=== PATIENT | male | born 1965 | race Caucasian/White ===

== ENCOUNTER 2017-09-10 15:53 | Emergency (ER) | payer BC ==
[2017-09-10] MEDS ORDERED: SODIUM CHLORIDE 0.9% 500 ML IV STA (16:54)
[2017-09-10] MEDS ORDERED: SODIUM CHLORIDE 0.9% 1,000 ML IV STA (16:54)
[2017-09-10 17:35] LABS: Basophils % (A) 0 %; Eosinophils # (A) 0.4 k/uL (0-0.7); Eosinophils % (A) 6 %; HCT 43.5 % (39.0-53.0); HGB 14.5 gm/dL (13.0-17.5); Lymphocytes # (A) 1.2 k/uL (1.0-4.8); Lymphocytes % (A) 18 %; MCH 29.7 pg (25.0-35.0); MCHC 33.4 g/dL (31.0-37.0); MCV 88.7 fL (80.0-100.0); Mean Platelet Volume 6.9; Monocytes # (A) 0.5 k/uL (0-1.0); Monocytes % (A) 7 %; Neutrophils # (A) 4.5 k/uL (1.3-7.7); Neutrophils % (A) 68 %; Platelet Count 342 k/uL (150-450); RDW 13.3 % (11.5-15.5); WBC 6.6 k/uL (3.8-10.6)
[2017-09-10 17:46] LABS: ALT 15 U/L (21-72); AST 28 U/L (17-59); Albumin 4.2 g/dL (3.5-5.0); Alkaline Phosphatase 113 U/L (38-126); Anion Gap 12 mmol/L; Blood Urea Nitrogen 13 mg/dL (9-20); Calcium 9.9 mg/dL (8.4-10.2); Carbon Dioxide 24 mmol/L (22-30); Chloride 107 mmol/L (98-107); Glucose 91 mg/dL (74-99); Sodium 143 mmol/L (137-145); Total Bilirubin 0.5 mg/dL (0.2-1.3); Total Protein 7.2 g/dL (6.3-8.2)
[2017-09-10 17:53] LABS: Creatine Kinase 226 U/L (55-170)
[2017-09-10 18:07] LABS: Creatine Kinase MB 2.4 ng/mL (0.0-2.4); Troponin I <0.012 ng/mL (0.000-0.034)
[2017-09-10 18:58] VITALS: RESP 18
--- NOTE | 2017-09-10 19:01 | ED ---
GI Bleed HPI - General Chief complaint: GI Bleed Stated complaint: Rectal bleeding Time Seen by Provider: 09/10/17 16:31 Source: patient Mode of arrival: ambulatory Limitations: no limitations - History of Present Illness Initial comments: 32 years old gentleman he had episode of rectal bleeding yesterday when he was at work it has been much resolved now he had a similar episode 10 years ago he has no abdominal pain there is no rectal pain there is no history of for a recent history of hemorrhoids he does not have any bleeding disorder and he is not on any blood thinners. He assisted me is he has no headaches no neck stiffness no chest pain no abdominal pain no frequency urgency dysuria rectal bleed has reached his old male - Related Data Home Medications Medication Instructions Recorded Confirmed No Known Home Medications [No 05/03/16 09/10/17 Known Home Medications] Allergies Allergy/AdvReac Type Severity Reaction Status Date / Time aspirin AdvReac Nausea & Verified 09/10/17 16:40 Vomiting Review of Systems ROS Statement: Those systems with pertinent positive or pertinent negative responses have been documented in the HPI. ROS Other: All systems not noted in ROS Statement are negative. 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 Skin: Skin is warm and dry and no rashes or lesions are noted. Eye: Pupils are equal, round and reactive to light, extra-ocular movements are intact; there is normal conjunctiva bilaterally. Ears, nose, mouth and throat: There are moist mucous membranes and no oral lesions. Neck: The neck is supple, there is no tenderness or JVD. Cardiovascular: There is a regular rate and rhythm. No murmur, rub or gallop is appreciated. Respiratory: To auscultation bilateral, no wheezing no rhonchi no distress respiratory vann noticed Gastrointestinal: Soft, non-distended, non-tender abdomen without masses or organomegaly noted. There is no rebound or guarding present. Bowel sounds are unremarkable. Rectal exam was negative for any hemorrhoids on any fissure no wilver bleeding noticed good rectal tone Back: There is no tenderness to palpation in the midline. There is no obvious deformity. Musculoskeletal: Normal ROM, no tenderness, There is no pedal edema. There is no calf tenderness or swelling. No cords were appreciated. Neurological: CN II-XII intact, Cranial nerves III through XII are intact. There are no obvious motor or sensory deficits. Coordination appears grossly intact. Speech is normal. Psychiatric: Cooperative, appropriate mood & affect, normal judgment. Limitations: no limitations Course Vital Signs 09/10/17 09/10/17 09/10/17 16:21 17:28 18:56 Temperature 97.6 F Pulse Rate 86 64 75 Respiratory 18 20 18 Rate Blood Pressure 125/87 121/64 140/66 O2 Sat by Pulse 97 98 98 Oximetry Reassessment was noticed mild is a normal hemoglobin is 14.5 troponin is unremarkable compress metabolic panel is within normal range her troponin is within normal range with the patient is currently taking Asacol mildly did advise that he sees Dr. Davidson for his skull. He agreed with the. I spoke with Dr. Davidson gave him patient's name and also advised patient to call Dr. Davidson's office in the morning to arrange a scope. At the same time if his symptoms get worse or rectal bleed get worse is advised come back to ER he agreed with. He is advised to avoid any nonsteroidal anti-inflammatories as well as alcohol the next few days Medical Decision Making - Lab Data Result diagrams: 09/10/17 17:16 09/10/17 17:16 Lab Results 09/10/17 09/10/17 09/10/17 Range/Units 17:16 17:16 17:16 WBC 6.6 (3.8-10.6) k/uL RBC 4.90 (4.30-5.90) m/uL Hgb 14.5 (13.0-17.5) gm/dL Hct 43.5 (39.0-53.0) % MCV 88.7 (80.0-100.0) fL MCH 29.7 (25.0-35.0) pg MCHC 33.4 (31.0-37.0) g/dL RDW 13.3 (11.5-15.5) % Plt Count 342 (150-450) k/uL Neutrophils % 68 % Lymphocytes % 18 % Monocytes % 7 % Eosinophils % 6 % Basophils % 0 % Neutrophils # 4.5 (1.3-7.7) k/uL Lymphocytes # 1.2 (1.0-4.8) k/uL Monocytes # 0.5 (0-1.0) k/uL Eosinophils # 0.4 (0-0.7) k/uL Basophils # 0.0 (0-0.2) k/uL APTT (22.0-30.0) sec Sodium 143 (137-145) mmol/L Potassium 4.0 (3.5-5.1) mmol/L Chloride 107 (98-107) mmol/L Carbon Dioxide 24 (22-30) mmol/L Anion Gap 12 mmol/L BUN 13 (9-20) mg/dL Creatinine 0.50 L (0.66-1.25) mg/dL Est GFR (CKD-EPI)AfAm >90 (>60 ml/min/1.73 sqM) Est GFR (CKD-EPI)NonAf >90 (>60 ml/min/1.73 sqM) Glucose 91 (74-99) mg/dL Plasma Lactic Acid Ismael (0.7-2.0) mmol/L Calcium 9.9 (8.4-10.2) mg/dL Total Bilirubin 0.5 (0.2-1.3) mg/dL AST 28 (17-59) U/L ALT 15 L (21-72) U/L Alkaline Phosphatase 113 (38-126) U/L Total Creatine Kinase 226 H (55-170) U/L CK-MB (CK-2) 2.4 (0.0-2.4) ng/mL CK-MB (CK-2) Rel Index 1.1 Troponin I <0.012 (0.000-0.034) ng/mL Total Protein 7.2 (6.3-8.2) g/dL Albumin 4.2 (3.5-5.0) g/dL Blood Type Blood Type Recheck Antibody Screen Spec Expiration Date 09/10/17 09/10/17 09/10/17 Range/Units 17:16 17:16 17:16 WBC (3.8-10.6) k/uL RBC (4.30-5.90) m/uL Hgb (13.0-17.5) gm/dL Hct (39.0-53.0) % MCV (80.0-100.0) fL MCH (25.0-35.0) pg MCHC (31.0-37.0) g/dL RDW (11.5-15.5) % Plt Count (150-450) k/uL Neutrophils % % Lymphocytes % % Monocytes % % Eosinophils % % Basophils % % Neutrophils # (1.3-7.7) k/uL Lymphocytes # (1.0-4.8) k/uL Monocytes # (0-1.0) k/uL Eosinophils # (0-0.7) k/uL Basophils # (0-0.2) k/uL APTT 24.8 (22.0-30.0) sec Sodium (137-145) mmol/L Potassium (3.5-5.1) mmol/L Chloride (98-107) mmol/L Carbon Dioxide (22-30) mmol/L Anion Gap mmol/L BUN (9-20) mg/dL Creatinine (0.66-1.25) mg/dL Est GFR (CKD-EPI)AfAm (>60 ml/min/1.73 sqM) Est GFR (CKD-EPI)NonAf (>60 ml/min/1.73 sqM) Glucose (74-99) mg/dL Plasma Lactic Acid Ismael 0.7 (0.7-2.0) mmol/L Calcium (8.4-10.2) mg/dL Total Bilirubin (0.2-1.3) mg/dL AST (17-59) U/L ALT (21-72) U/L Alkaline Phosphatase (38-126) U/L Total Creatine Kinase (55-170) U/L CK-MB (CK-2) (0.0-2.4) ng/mL CK-MB (CK-2) Rel Index Troponin I (0.000-0.034) ng/mL Total Protein (6.3-8.2) g/dL Albumin (3.5-5.0) g/dL Blood Type O Positive Blood Type Recheck No Antibody Screen NEGATIVE Spec Expiration Date 09/13/2017 - 2316 Disposition Clinical Impression: Rectal bleed Disposition: HOME SELF-CARE Condition: Good Instructions: Gastrointestinal Bleeding (ED) Is patient prescribed a controlled substance at d/c from ED?: No If prescribed controlled substance>3 days was MAPS reviewed?: No When asked, does pt state using other controlled substances?: No Referrals: Maxine Yun MD [Primary Care Provider] - 1-2 days Abiel Davidson DO [Doctor of Osteopathic Medicine] - 1-2 days
[2017-09-10 19:26] VITALS: BP 130/68; PULSE 84; TEMP 98
== END 2017-09-10 19:26 | disposition home or self-care (01) ==
LOC: EC 15:53
DX: K62.5 Hemorrhage of anus and rectum (principal); F17.200 Nicotine dependence, unspecified, uncomplicated; Z86.73 Personal history of transient ischemic attack (TIA), and cerebral infarction without residual deficits; Z88.6 Allergy status to analgesic agent
CPT/HCPCS: 36415; 80053; 82550; 82553; 83605; 84484; 85025; 85730; 86850; 86900; 86901; 96360; 96361; 99283

== ENCOUNTER → 2020-09-06 | Outpatient (CLI) | payer OTHER ==
--- NOTE | 2020-09-06 15:57 | XR ---
EXAMINATION TYPE: XR ankle complete LT DATE OF EXAM: 09/06/2020 COMPARISON: NONE HISTORY: Pain FINDINGS: Three views of the ankle demonstrate the ankle mortise to be intact and symmetric. The joint spaces are preserved. The osseous structures are intact. Diffuse soft tissue edema. Tiny plantar calcaneal spur. IMPRESSION: 1. No definite acute fracture or dislocation, if symptoms persist follow-up study in 7 to 10 days wou ld be suggested.
== END | disposition home or self-care (01) ==
LOC: RADXRMAIN 15:37
PROVIDERS: ATTEND Emergency Medicine
DX: S93.402A Sprain of unspecified ligament of left ankle, initial encounter (principal)

== ENCOUNTER → 2020-09-07 | Outpatient (CLI) | payer OTHER ==
--- NOTE | 2020-09-07 10:37 | US ---
EXAMINATION TYPE: US venous doppler duplex LE LT DATE OF EXAM: 09/07/2020 10:25 AM COMPARISON: NONE CLINICAL HISTORY: S80.12XD S93.602D. SIDE PERFORMED: Left TECHNIQUE: The lower extremity deep venous system is examined utilizing real time linear array sonog shana with graded compression, doppler sonography and color-flow sonography. VESSELS IMAGED: Common Femoral Vein Deep Femoral Vein Greater Saphenous Vein * Femoral Vein Popliteal Vein Small Saphenous Vein * Proximal Calf Veins (* superficial vessels) Probable Ceron's cyst, C shaped measuring 4.6 x 1.7 x 2.8cm. Left Leg: Negative for DVT IMPRESSION: 1. Left lower extremity ultrasound negative for deep venous thrombosis. 2. Popliteal cyst left posterior popliteal fossa
--- NOTE | 2020-09-07 11:34 | XR ---
EXAMINATION TYPE: XR foot complete LT DATE OF EXAM: 09/07/2020 CLINICAL HISTORY: pain TECHNIQUE: Frontal, lateral and oblique images of the left foot are obtained. COMPARISON: None. FINDINGS: There is no acute fracture/dislocation evident. The joint spaces appear within normal barrientos its. The overlying soft tissue appears unremarkable. Plantar and dorsal calcaneal spurs identified. IMPRESSION: There is no acute fracture or dislocation. ICD 10 NO FRACTURE, INITIAL EVALUATION
--- NOTE | 2020-09-07 11:35 | XR ---
EXAMINATION TYPE: XR tibia fibula LT DATE OF EXAM: 09/07/2020 CLINICAL HISTORY: pain TECHNIQUE: AP and lateral images of the left tibia and fibula are obtained. COMPARISON: None. FINDINGS: There is no acute fracture/dislocation evident. The joint spaces appear within normal barrientos its. The overlying soft tissue appears unremarkable. IMPRESSION: There is no acute fracture or dislocation seen. ICD 10 NO FRACTURE, INITIAL EVALUATION
== END | disposition home or self-care (01) ==
LOC: RADXRMAIN 09:38
PROVIDERS: ATTEND Emergency Medicine
DX: M71.22 Synovial cyst of popliteal space [Baker], left knee (principal); M79.672 Pain in left foot; M79.662 Pain in left lower leg

== ENCOUNTER 2020-09-09 14:45 | Emergency (ER) | payer BC, OTHER ==
[2020-09-09 14:52] VITALS: RESP 18
[2020-09-09 16:06] LABS: Basophils # (A) 0.1 k/uL (0-0.2); Basophils % (A) 1 %; Eosinophils # (A) 0.3 k/uL (0-0.7); Eosinophils % (A) 3 %; HCT 46.1 % (39.0-53.0); HGB 15.5 gm/dL (13.0-17.5); Lymphocytes # (A) 0.8 k/uL (1.0-4.8); Lymphocytes % (A) 11 %; MCH 31.4 pg (25.0-35.0); MCHC 33.6 g/dL (31.0-37.0); MCV 93.6 fL (80.0-100.0); Monocytes # (A) 0.5 k/uL (0-1.0); Monocytes % (A) 7 %; Neutrophils # (A) 5.9 k/uL (1.3-7.7); Neutrophils % (A) 77 %; Platelet Count 369 k/uL (150-450); RBC 4.92 m/uL (4.30-5.90); RDW 13.2 % (11.5-15.5); WBC 7.6 k/uL (3.8-10.6)
[2020-09-09 16:23] LABS: ALT 21 U/L (4-49); AST 29 U/L (17-59); African American GFR (CKD) >90 (>60 ml/min/1.73 sqM); Albumin 3.8 g/dL (3.5-5.0); Alkaline Phosphatase 155 U/L (38-126); Anion Gap 6 mmol/L; Blood Urea Nitrogen 13 mg/dL (9-20); C Reactive Protein 4.9 mg/dL (<1.0); Calcium 9.3 mg/dL (8.4-10.2); Carbon Dioxide 30 mmol/L (22-30); Chloride 100 mmol/L (98-107); Creatine Kinase 58 U/L (55-170); Glucose 106 mg/dL (74-99); Non-African American GFR(CKD) >90 (>60 ml/min/1.73 sqM); Potassium 4.2 mmol/L (3.5-5.1); Sodium 136 mmol/L (137-145); Total Bilirubin 0.8 mg/dL (0.2-1.3); Total Protein 6.9 g/dL (6.3-8.2)
[2020-09-09 16:49] LABS: Erythrocyte Sedimentation Rate 16 mm/hr (0-15)
--- NOTE | 2020-09-09 17:03 | ED ---
Lower Extremity Injury HPI - General Source: patient Mode of arrival: ambulatory Limitations: no limitations <Estefani Carballo - Last Filed: 09/09/20 19:15> <Trav Melendezah Iliana - Last Filed: 09/10/20 23:08> - General Chief Complaint: Extremity Injury, Lower Stated Complaint: [facility] Fall Time Seen by Provider: 09/09/20 15:24 - History of Present Illness Initial Comments: Patient is a 55-year-old male presenting to the emergency department for a recheck of an injury to his left lower leg. Patient states about 2 weeks ago he fell over a piece of equipment at work and twisted his left knee and ankle. 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 He was able to get appointment the following week, he did have outpatient x-rays of his ankle, foot, tib-fib about 3 days ago. No acute fracture dislocation seen. He also had an ultrasound of his left lower extremity 2 days ago which revealed no evidence of blood clots. Patient states he'll follow with [facility] today and they recommended coming into the ER for further evaluation. Patient states he continues to have pain of his left lower leg, swelling as well as redness to the area. He states his left knee no longer hurts, is able to bend without difficulty. He denies any previous left lower extremity surgeries or injuries. He denies any fevers or chills, no nausea or vomiting. He states the pain increases when he is standing upright or when he sitting and the leg is hanging down. He denies history of previous blood clots. Patient has no further complaints at this time. Upon arrival to the ER his vitals are stable. (Estefani Carballo) - Related Data Previous Rx's Medication Instructions Recorded Cephalexin [Keflex] 500 mg PO Q6HR 7 Days #28 cap 09/09/20 HYDROcodone/APAP 5-325MG [Madera 1 tab PO Q6HR PRN 3 Days #12 tab 09/09/20 5-325] Allergies Allergy/AdvReac Type Severity Reaction Status Date / Time aspirin AdvReac Nausea & Verified 09/09/20 16:45 Vomiting Review of Systems ROS Other: All systems not noted in ROS Statement are negative. <Estefani Carballo - Last Filed: 09/09/20 19:15> ROS Other: All systems not noted in ROS Statement are negative. <Gem Melendez - Last Filed: 09/10/20 23:08> ROS Statement: Those systems with pertinent positive or pertinent negative responses have been documented in the HPI. 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 Patient is nontoxic and in no acute distress. HEAD: Atraumatic, normocephalic. EYES: Pupils equal round and reactive to light, extraocular movements intact, sclera anicteric, conjunctiva are normal. Eyelids were unremarkable. ENT: TMs normal, nares patent, oropharynx clear without exudates. Moist mucous membranes. NECK: Normal range of motion, supple without lymphadenopathy or JVD. LUNGS: Unlabored respirations. Breath sounds clear to auscultation bilaterally and equal. No wheezes rales or rhonchi. HEART: Regular rate and rhythm without murmurs, rubs or gallops. ABDOMEN: Soft, nontender, normoactive bowel sounds. No guarding, no rebound. No masses appreciated. : Deferred MUSCULOSKELETAL: The patient has significant swelling of the left lower leg just below the knee level when compared to the right lower leg. He has erythema and bruising from the mid to be a area down through the foot. His dorsal pedis pulse is normal, strong. He is able to flex and extend his ankle, his toes, he does have pain with palpation of the entire area, the area is soft and compressible. There is some warmth to the area. Full active range of motion of his left knee and hip. Rest of extremities with adequate strength and normal range of motion, no pitting or edema. No clubbing or cyanosis. NEUROLOGICAL: Patient is alert and oriented x 3. Motor and sensory are also intact. Cranial nerves II through XII grossly intact. Symmetrical smile. Normal speech. PSYCH: Normal mood, normal affect. SKIN: Warm, Dry, normal turgor, no rashes or lesions noted. (Estefani Carballo) Course Vital Signs 09/09/20 09/09/20 14:50 18:10 Temperature 97.8 F 98.4 F Pulse Rate 96 74 Respiratory 18 18 Rate Blood Pressure 183/99 165/91 O2 Sat by Pulse 98 96 Oximetry Medical Decision Making - Lab Data Result diagrams: 09/09/20 15:55 09/09/20 15:55 <Estefani Carballo - Last Filed: 09/09/20 19:15> - Lab Data Result diagrams: 09/09/20 15:55 09/09/20 15:55 <Gem Melendez - Last Filed: 09/10/20 23:08> - Medical Decision Making Patient is a 55-year-old male here with a recheck of a work injury that he sustained 2 weeks ago. He continues to have pain, swelling of the left lower leg. He has had recent x-rays, ultrasound to rule out DVT 2 days ago which were all negative. I did perform a CT of his left lower leg today which reveals no acute bony abnormalities. Discussed these findings with the patient. Patient be started on antibiotics for mild redness and erythema to prevent infection, I will give him a prescription for Madera for pain relief. He should alternate this with ibuprofen. We will give him orthopedic follow-up for possible ligament damage. He should continue to do elevation, compression with an Chu wrap as well as using his crutches. He is stable for discharge. Return parameters were discussed with the patient he verbalizes understanding. Case discussed with Dr. Melendez. (Estefani Carballo) I was available for consultation in the emergency department. The history and physical exam were done by the midlevel provider. I was consulted for this patients care. I reviewed the case with the midlevel provider and based on their presentation of the patient, I agree with the assessment, medical decision making and plan of care as documented. Chart was dictated using [employer]in[employer] dictation software. Attempts were made to correct any dictation errors however some typographical errors may persist. Patient was seen during a national state of emergency due to the Covid-19 pandemic. (Gem Melendez) - Lab Data Lab Results 09/09/20 09/09/20 Range/Units 15:55 15:55 WBC 7.6 (3.8-10.6) k/uL RBC 4.92 (4.30-5.90) m/uL Hgb 15.5 (13.0-17.5) gm/dL Hct 46.1 (39.0-53.0) % MCV 93.6 (80.0-100.0) fL MCH 31.4 (25.0-35.0) pg MCHC 33.6 (31.0-37.0) g/dL RDW 13.2 (11.5-15.5) % Plt Count 369 (150-450) k/uL MPV 7.0 Neutrophils % 77 % Lymphocytes % 11 % Monocytes % 7 % Eosinophils % 3 % Basophils % 1 % Neutrophils # 5.9 (1.3-7.7) k/uL Lymphocytes # 0.8 L (1.0-4.8) k/uL Monocytes # 0.5 (0-1.0) k/uL Eosinophils # 0.3 (0-0.7) k/uL Basophils # 0.1 (0-0.2) k/uL ESR 16 H (0-15) mm/hr Sodium 136 L (137-145) mmol/L Potassium 4.2 (3.5-5.1) mmol/L Chloride 100 (98-107) mmol/L Carbon Dioxide 30 (22-30) mmol/L Anion Gap 6 mmol/L BUN 13 (9-20) mg/dL Creatinine 0.44 L (0.66-1.25) mg/dL Est GFR (CKD-EPI)AfAm >90 (>60 ml/min/1.73 sqM) Est GFR (CKD-EPI)NonAf >90 (>60 ml/min/1.73 sqM) Glucose 106 H (74-99) mg/dL Calcium 9.3 (8.4-10.2) mg/dL Total Bilirubin 0.8 (0.2-1.3) mg/dL AST 29 (17-59) U/L ALT 21 (4-49) U/L Alkaline Phosphatase 155 H (38-126) U/L Creatine Kinase 58 (55-170) U/L C-Reactive Protein 4.9 H (<1.0) mg/dL Total Protein 6.9 (6.3-8.2) g/dL Albumin 3.8 (3.5-5.0) g/dL Disposition Is patient prescribed a controlled substance at d/c from ED?: Yes When asked, does pt state using other controlled substances?: No If prescribed controlled substance>3 days was MAPS reviewed?: Prescribed <3 Days If opioid is for acute pain is fill amount 7 days or less?: Yes If Rx opioid, was Start Talking consent form obtained?: Yes Time of Disposition: 19:11 <Estefani Carballo - Last Filed: 09/09/20 19:15> <Gem Melendez - Last Filed: 09/10/20 23:08> Clinical Impression: Injury of left ankle, Cellulitis of left lower leg Disposition: HOME SELF-CARE Condition: Stable Instructions (If sedation given, give patient instructions): Ankle Sprain (ED) Additional Instructions: Please return to the Emergency Department if symptoms worsen or any other concerns. Alternate between Tylenol and ibuprofen for discomfort. For more severe pain, he can take Madera with ibuprofen. Continue to elevate above the heart level, use compression wrap for swelling control. Take antibiotics as prescribed. Follow-up with orthopedics for further evaluation of her injury. No driving or working at this time until follow-up with orthopedics. Continue to use crutches. Prescriptions: Cephalexin [Keflex] 500 mg PO Q6HR 7 Days #28 cap HYDROcodone/APAP 5-325MG [[place] 5-325] 1 tab PO Q6HR PRN 3 Days #12 tab PRN Reason: Pain Referrals: Maxine Yun MD [Primary Care Provider] - 1-2 days Danilo Woodall PAC [PHYSICIAN [employer] INSTRUCTOR] - 1-2 days
--- NOTE | 2020-09-09 18:07 | CT ---
EXAMINATION TYPE: CT lower leg LT wo con DATE OF EXAM: 09/09/2020 COMPARISON: Left tibia and fibula 09/07/2020 HISTORY: Injury 1 week ago, continued pain and swelling. CT DLP: 296.9 mGycm Automated exposure control for dose reduction was used. Images were obtained from the distal femur to the bottom of the foot without contrast. The tibia and fibula appear intact. The knee joint is anatomic. Joint spaces are fairly normal. Ankle joint is intact. Joint spaces are fairly normal. I see no focal bone destruction. There is no eviden ce of a soft tissue mass. There are atherosclerotic vascular calcifications in the tibial arteries. T here are plantar and Achilles calcaneal spurs. There is some soft tissue swelling of the forefoot. Th ere is mild spurring on the anterior patella. IMPRESSION: There is soft tissue swelling on the dorsum of the foot. No fracture seen. No evidence of osteomyelit is.
[2020-09-09 18:12] VITALS: BP 165/91; PULSE 74; TEMP 98.4
== END 2020-09-09 19:29 | disposition home or self-care (01) ==
LOC: EC 14:45
DX: S90.32XA Contusion of left foot, initial encounter (principal); S99.912A Unspecified injury of left ankle, initial encounter; L03.116 Cellulitis of left lower limb; F17.200 Nicotine dependence, unspecified, uncomplicated; Z86.73 Personal history of transient ischemic attack (TIA), and cerebral infarction without residual deficits; F12.90 Cannabis use, unspecified, uncomplicated; X50.1XXA Overexertion from prolonged static or awkward postures, initial encounter; Y92.89 Other specified places as the place of occurrence of the external cause; Y99.0 Civilian activity done for income or pay
CPT/HCPCS: 36415; 80053; 82550; 85025; 85652; 86140; 99284

== ENCOUNTER 2020-09-13 11:48 | Inpatient (IN) | payer OTHER ==
--- NOTE | 2020-09-13 12:13 | ED ---
Lower Extremity Injury HPI - General Chief Complaint: Extremity Injury, Lower Stated Complaint: revisit - [facility] lt foot injury Time Seen by Provider: 09/13/20 11:57 Source: patient Mode of arrival: ambulatory Limitations: no limitations - History of Present Illness Initial Comments: 55-year-old male presents to emergency Department with a chief complaint of left lower leg injury. Patient states he injured his left lower extremity on 08/25/20. States he was evaluated in the emergency department several days after but was found to have no acute findings. Patient reports she gradually began to develop swelling and erythema and region. States about one week ago he came to the emergency department for reevaluation a head CT imaging showing no acute f indings aside from soft tissue swelling. States was started on Keflex and has taken 3 days of the medication with no improvement in the swelling or erythema. States the erythematous region is located along the anterior lateral aspect of the left lower extremity and moving circumferentially to the foot. He also reports left-sided calf pain states he saw Dr. Prince today who advised him to come to emergency department for evaluation and had requested specific subtle laboratory work, ultrasound imaging and IV antibiotics. Patient denies any fevers or chills. States the pain is exacerbated with weightbearing. States he spending most of his days in a recliner with the leg elevated due to the pain. Denies chest pain or shortness of breath. - Related Data Previous Rx's Medication Instructions Recorded Cephalexin [Keflex] 500 mg PO Q6HR 7 Days #28 cap 09/09/20 HYDROcodone/APAP 5-325MG [[place] 1 tab PO Q6HR PRN 3 Days #12 tab 09/09/20 5-325] Allergies Allergy/AdvReac Type Severity Reaction Status Date / Time aspirin AdvReac Nausea & Verified 09/13/20 12:30 Vomiting Review of Systems ROS Statement: Those systems with pertinent positive or pertinent negative responses have been documented in the HPI. ROS Other: All systems not noted in ROS Statement are negative. Past Medical History Past Medical History: CVA/TIA Additional Past Medical History / Comment(s): divirticultis History of Any Multi-Drug Resistant Organisms: None Reported Past Surgical History: No Surgical Hx Reported Past Psychological History: No Psychological Hx Reported Smoking Status: Current every day smoker Past Alcohol Use History: Occasional Past Drug Use History: Marijuana General Exam Limitations: no limitations General appearance: alert, in no apparent distress Head exam: Present: atraumatic, normocephalic, normal inspection Eye exam: Present: normal appearance, PERRL, EOMI Pupils: Present: normal accommodation ENT exam: Present: normal exam, normal oropharynx, mucous membranes moist, TM's normal bilaterally, normal external ear exam Neck exam: Present: normal inspection, full ROM. Absent: tenderness, lymphadenopathy Respiratory exam: Present: normal lung sounds bilaterally. Absent: respiratory distress, wheezes, rales, rhonchi, stridor, chest wall tenderness, accessory muscle use Cardiovascular Exam: Present: regular rate, normal rhythm, normal heart sounds. Absent: systolic murmur Extremities exam: Present: tenderness (Tenderness at the foot and ankle), normal capillary refill. Absent: normal inspection (Left lower extremity edema with ov erlying cellulitic skin changes noted on the anterior lateral aspect of the left lower leg in a circumferential he around the ankle and foot.), full ROM (Limited range of motion of the left ankle due to swelling), pedal edema, joint swelling, calf tenderness Back exam: Present: normal inspection, full ROM. Absent: tenderness, CVA tenderness (R), CVA tenderness (L) Neurological exam: Present: alert, oriented X3 Psychiatric exam: Present: normal affect, normal mood Skin exam: Present: warm, dry, intact, normal color Course Vital Signs 09/13/20 09/13/20 11:51 14:12 Temperature 98.2 F 98.1 F Pulse Rate 87 80 Respiratory 18 18 Rate Blood Pressure 144/88 155/102 O2 Sat by Pulse 93 L 95 Oximetry Medical Decision Making - Medical Decision Making 55-year-old male presents to emergency Department with a chief complaint of left lower leg injury. Physical examination, his left lower extremity swelling with calf tenderness. Cellulitis on the anterior lateral aspect of the extremity and the whole foot. Laboratory work obtained shows no leukocytosis. Lactic acid within normal limits. Blood cultures pending. ESR 22 CRP 6.3. Patient was initially given Rocephin. 2 L IV fluids. Will be started on vancomycin. I spoke with VICENTE clemente for Dr. Prince who would like to admit. I spoke with Dr. Mcghee who will admit for further medical management. Infectious disease and consult. Orthopedics on consult. Case discussed with - Lab Data Result diagrams: 09/13/20 13:01 09/13/20 13: Lab Results 09/13/20 09/13/20 09/13/20 Range/Units 13: 13: 13: WBC 9.0 (3.8-10.6) k/uL RBC 5.01 (4.30-5.90) m/uL Hgb 15.3 (13.0-17.5) gm/dL Hct 46.9 (39.0-53.0) % MCV 93.5 (80.0-100.0) fL MCH 30.6 (25.0-35.0) pg MCHC 32.7 (31.0-37.0) g/dL RDW 13.8 (11.5-15.5) % Plt Count 465 H (150-450) k/uL MPV 6.6 Neutrophils % 76 % Lymphocytes % 13 % Monocytes % 6 % Eosinophils % 4 % Basophils % 1 % Neutrophils # 6.8 (1.3-7.7) k/uL Lymphocytes # 1.1 (1.0-4.8) k/uL Monocytes # 0.6 (0-1.0) k/uL Eosinophils # 0.3 (0-0.7) k/uL Basophils # 0.1 (0-0.2) k/uL ESR 22 H (0-15) mm/hr Sodium 138 (137-145) mmol/L Potassium 4.5 (3.5-5.1) mmol/L Chloride 99 (98-107) mmol/L Carbon Dioxide 33 H (22-30) mmol/L Anion Gap 6 mmol/L BUN 11 (9-20) mg/dL Creatinine 0.42 L (0.66-1.25) mg/dL Est GFR (CKD-EPI)AfAm >90 (>60 ml/min/1.73 sqM) Est GFR (CKD-EPI)NonAf >90 (>60 ml/min/1.73 sqM) Glucose 107 H (74-99) mg/dL Plasma Lactic Acid Ismael 0.8 (0.7-2.0) mmol/L Calcium 10.3 H (8.4-10.2) mg/dL Total Bilirubin 0.9 (0.2-1.3) mg/dL AST 38 (17-59) U/L ALT 25 (4-49) U/L Alkaline Phosphatase 166 H (38-126) U/L C-Reactive Protein 6.3 H (<1.0) mg/dL Total Protein 7.5 (6.3-8.2) g/dL Albumin 4.3 (3.5-5.0) g/dL Disposition Clinical Impression: Failure of outpatient treatment, Left leg cellulitis Disposition: ADMITTED IP TO THIS HOSP Condition: Stable Is patient prescribed a controlled substance at d/c from ED?: No Referrals: Maxine Yun MD [Primary Care Provider] - 1-2 days Time of Disposition: 15:14
[2020-09-13] MEDS ORDERED: cefTRIAXone IN SWFI 1,000 MG/10 ML SYRINGE IVP STA (12:22)
[2020-09-13] MEDS ORDERED: SODIUM CHLORIDE 0.9% 1,000 ML IV STA ×2 (12:22)
[2020-09-13] MEDS ORDERED: HYDROcodone/APAP 5-325MG 1 EACH TAB PO STA (13:29)
[2020-09-13 13:33] LABS: Basophils # (A) 0.1 k/uL (0-0.2); Basophils % (A) 1 %; Eosinophils # (A) 0.3 k/uL (0-0.7); Eosinophils % (A) 4 %; HCT 46.9 % (39.0-53.0); HGB 15.3 gm/dL (13.0-17.5); Lymphocytes # (A) 1.1 k/uL (1.0-4.8); Lymphocytes % (A) 13 %; MCH 30.6 pg (25.0-35.0); MCHC 32.7 g/dL (31.0-37.0); MCV 93.5 fL (80.0-100.0); Mean Platelet Volume 6.6; Monocytes # (A) 0.6 k/uL (0-1.0); Monocytes % (A) 6 %; Neutrophils # (A) 6.8 k/uL (1.3-7.7); Neutrophils % (A) 76 %; Platelet Count 465 k/uL (150-450); RBC 5.01 m/uL (4.30-5.90); RDW 13.8 % (11.5-15.5)
[2020-09-13 13:50] LABS: ALT 25 U/L (4-49); AST 38 U/L (17-59); African American GFR (CKD) >90 (>60 ml/min/1.73 sqM); Albumin 4.3 g/dL (3.5-5.0); Alkaline Phosphatase 166 U/L (38-126); Anion Gap 6 mmol/L; Blood Urea Nitrogen 11 mg/dL (9-20); C Reactive Protein 6.3 mg/dL (<1.0); Calcium 10.3 mg/dL (8.4-10.2); Carbon Dioxide 33 mmol/L (22-30); Chloride 99 mmol/L (98-107); Glucose 107 mg/dL (74-99); Non-African American GFR(CKD) >90 (>60 ml/min/1.73 sqM); Potassium 4.5 mmol/L (3.5-5.1); Sodium 138 mmol/L (137-145); Total Bilirubin 0.9 mg/dL (0.2-1.3); Total Protein 7.5 g/dL (6.3-8.2)
--- NOTE | 2020-09-13 13:54 | US ---
EXAMINATION TYPE: US venous doppler duplex LE LT DATE OF EXAM: 09/13/2020 1:46 PM COMPARISON: 09/07/2020 CLINICAL HISTORY: r/o dvt, cellulitis. edema SIDE PERFORMED: Left TECHNIQUE: The lower extremity deep venous system is examined utilizing real time linear array sonog shana with graded compression, doppler sonography and color-flow sonography. VESSELS IMAGED: Common Femoral Vein Deep Femoral Vein Greater Saphenous Vein * Femoral Vein Popliteal Vein Small Saphenous Vein * Proximal Calf Veins (* superficial vessels) Left Leg: Negative for DVT Fluid pocket seen medial 4.4 x 1.7 x 2.2 cm. IMPRESSION: 1. No diagnostic evidence of DVT. 2. Left popliteal fossa cyst measuring 4.4 cm
[2020-09-13 14:17] LABS: Erythrocyte Sedimentation Rate 22 mm/hr (0-15)
[2020-09-13] MEDS ORDERED: VANCOMYCIN IV PER PHARMACY 1 EACH MISC MISCELLANE PRN (15:07)
[2020-09-13] MEDS ORDERED: LORazepam 2 MG/ML INJ IV PRN (15:09)
[2020-09-13] MEDS ORDERED: NALOXONE 0.4 MG/ML 1 ML VIAL IV PRN (15:09)
[2020-09-13] MEDS ORDERED: MORPHINE SULFATE 4 MG/ML SYRINGE IV PRN (15:09)
[2020-09-13] MEDS ORDERED: ONDANSETRON 4 MG/2 ML VIAL IVP PRN (15:09)
[2020-09-13] MEDS ORDERED: ACETAMINOPHEN TAB 325 MG TAB PO PRN (15:09)
[2020-09-13] MEDS ORDERED: VANCOMYCIN 1,500 MG in SODIUM CHLORIDE 0.9% 250 ML IVPB STA (15:13)
[2020-09-13] MEDS ORDERED: ALPRAZolam 0.25 MG TAB PO PRN (18:32)
[2020-09-13] MEDS ORDERED: TEMAZEPAM 15 MG CAP PO PRN (18:32)
--- NOTE | 2020-09-13 19:02 | CT ---
EXAMINATION TYPE: CT lower extremity LT w con DATE OF EXAM: 09/13/2020 COMPARISON: None HISTORY: Extensive cellulitis, LT leg. Pt noted a recent work injury. CT DLP: 153.9 mGycm Automated exposure control for dose reduction was used. CONTRAST: Performed with IV Contrast, patient injected with 100 mL of Isovue 300. Images obtained from the proximal tibia to the bottom of the foot with IV contrast. There is diffuse subcutaneous edema around the lower leg. I see no bony destructive process. The tibi a and fibula appear intact. The ankle mortise is anatomic. The hindfoot is intact. Metatarsals appear intact. I see no focal bone destruction. The toes appear intact. I see no discrete soft tissue mass. IMPRESSION: Diffuse subcutaneous edema consistent with cellulitis. No drainable fluid collection. No fracture. No evidence of osteomyelitis.
[2020-09-13 20:10] LABS: ALT 21 U/L (4-49); AST 35 U/L (17-59); African American GFR (CKD) >90 (>60 ml/min/1.73 sqM); Albumin 3.2 g/dL (3.5-5.0); Albumin/Globulin Ratio 1.1; Alkaline Phosphatase 119 U/L (38-126); Anion Gap 3 mmol/L; Blood Urea Nitrogen 10 mg/dL (9-20); Calcium 9.1 mg/dL (8.4-10.2); Carbon Dioxide 30 mmol/L (22-30); Chloride 102 mmol/L (98-107); Creatine Kinase 51 U/L (55-170); Globulin 2.9 g/dL; Glucose 127 mg/dL (74-99); Non-African American GFR(CKD) >90 (>60 ml/min/1.73 sqM); Potassium 4.3 mmol/L (3.5-5.1); Sodium 135 mmol/L (137-145); Total Bilirubin 0.7 mg/dL (0.2-1.3); Total Protein 6.1 g/dL (6.3-8.2)
--- NOTE | 2020-09-13 20:38 | HP ---
HISTORY AND PHYSICAL DATE OF SERVICE: 09/13/2020 CHIEF COMPLAINT: Pain and swelling of the left leg. HISTORY OF PRESENT ILLNESS: This 55-year-old gentleman with a past medical history of CVA, TIA, history of diverticulosis, history of nicotine dependence, being followed by Dr. Maxine Yun in the outpatient setting, apparently tripped at work and had injured his left lower extremity on 08/25/2020. The patient was evaluated in the emergency room without any acute findings, but subsequently the patient developed some erythema and tenderness, and patient came to the emergency room and was given Keflex. Because of non-improvement of symptoms, the patient was evaluated by Dr. Aquiles puckett in the office and the patient was directly sent to [facility] Emergency Room for further evaluation and treatment. The patient also had a venous Doppler study which showed a left popliteal fossa cyst. Otherwise, no other acute abnormality. The patient also had a lower extremity CT a few days ago in the ER which showed tissue swelling of the dorsum of the foot; no fractures, no evidence of any osteomyelitis was noted. There is no history of any fever, rigor or chills at this time. PAST MEDICAL HISTORY: History of CVA, TIA, diverticulitis, history of nicotine dependence. HOME MEDICATIONS: [place] 5 mg and Keflex 500 mg q.6. ALLERGIES: ASPIRIN. FAMILY HISTORY: No history of heart disease or strokes in the family. SOCIAL HISTORY: History of smoking. History of THC. REVIEW OF SYSTEMS: ENT: No diminished hearing. No diminished vision. CARDIOVASCULAR SYSTEM: No angina, palpitations. RESPIRATORY SYSTEM: No cough, hemoptysis. GI: No nausea, vomiting. : No dysuria or retention. NERVOUS SYSTEM: No numbness, weakness. ALLERGY/IMMUNOLOGY: No asthma, hayfever. MUSCULOSKELETAL: As mentioned earlier. HEMATOLOGY/ONCOLOGY: No history of anemia. ENDOCRINE: No history of diabetes, hypothyroidism. CONSTITUTIONAL: As mentioned earlier. DERMATOLOGY: As mentioned earlier. RHEUMATOLOGY: Negative. PSYCHIATRY: As mentioned earlier. PHYSICAL EXAMINATION: Patient is alert, oriented x3. Pulse is 83, blood pressure 154/77, respiration 18, temperature 98.2, pulse ox 93% on room air. HEENT: Conjunctivae normal. Oral mucosa moist. NECK: No jugular venous distention. No carotid bruit. No lymph node enlargement. CARDIOVASCULAR SYSTEM: S1, S2 muffled. No S3. No S4. RESPIRATORY SYSTEM: Breath sounds diminished at the bases. No rhonchi. No crackles. ABDOMEN: Soft, non-tender. No mass palpable. LEGS: Left leg has significant erythema, tenderness and swelling of the left lower leg below the mid part of the leg. Pulses are diminished. Movements are slightly painful. NERVOUS SYSTEM: Higher functions as mentioned earlier. Moves all 4 limbs. No focal motor or sensory deficit. LYMPHATICS: No lymph node palpable in neck, axillae or groin. SKIN: As mentioned earlier. JOINTS: No active deforming arthropathy. LABS: Labs at this time show WBC 9, hemoglobin 15.3, platelets 465. Sodium 138, potassium 4.5, creatinine is 0.42, and calcium is 10.3. Alkaline phosphatase is 166. CRP is 6.3. Serologies negative, including influenza, RSV and SARS-CoV-2. ASSESSMENT: 1. Pain and swelling of the left lower leg with some cellulitis with failure of outpatient treatment. 2. Elevated platelet count. 3. Increased carbon dioxide. 4. Increased random blood glucose. 5. Elevated CRP. 6. Elevated serum calcium level. 7. History of cerebrovascular accident, transient ischemic attack. 8. History of diverticulitis. 9. History of nicotine dependence. 10.History of tetrahydrocannabinol. 11.FULL CODE. RECOMMENDATIONS AND DISCUSSION: In this 55-year-old gentleman who presented with multiple complex medical issues, we will monitor the patient closely, continue the current medications, continue symptomatic treatment. Will initiate broad-spectrum IV antibiotics. Otherwise, orthopedic evaluation. Infectious disease evaluation. Also recommend a CT scan of the leg and also DVT prophylaxis. Also recommend evaluation of CK. Prognosis is guarded because of multiple complex medical issues. Further recommendations to follow. A copy of this dictation is being forwarded to Dr. Maxine Yun, who is the primary physician. MMODL / IJN: [id number] /
[2020-09-13] MEDS: PIPERACILLIN-TAZOBACTAM 3.375 GM in SODIUM CHLORIDE 0.9% 100 ML IVPB SCH (22:26)
[2020-09-14] MEDS: VANCOMYCIN 1,500 MG in SODIUM CHLORIDE 0.9% 250 ML IVPB SCH ×3 (00:43→16:12)
[2020-09-14 01:30] LABS: Appearance,Urine Clear (Clear); Bilirubin,Urine Negative (Negative); Blood,Urine Negative (Negative); Color,Urine Yellow; Glucose,Urine (UA) Negative (Negative); Ketones,Urine Negative (Negative); Leukocyte Esterase,Urine Negative (Negative); Nitrite,Urine Negative (Negative); PH, Urine 7.5 (5.0-8.0); Protein,Urine Trace (Negative); Specific Gravity,Urine 1.045 (1.001-1.035)
[2020-09-14] MEDS: PIPERACILLIN-TAZOBACTAM 3.375 GM in SODIUM CHLORIDE 0.9% 100 ML IVPB SCH ×3 (04:32→21:21)
--- NOTE | 2020-09-14 07:51 | P.CNOR ---
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 He twisted his foot and ankle at work. He's had swelling since. Subsequently developed sig nificant erythema. His been using a postoperative shoe. He's been partial weightbearing. He denies fevers or chills. He feels as though his leg is quite swollen and stiff. He was started on oral Keflex without much improvement. Review of Systems Constitutional: Reports as per HPI Musculoskeletal: Reports as per HPI Past Medical History Past Medical History: COPD, CVA/TIA Additional Past Medical History / Comment(s): divirticultis, pt states he was told he might've had an MO when he was around 28 years old History of Any Multi-Drug Resistant Organisms: None Reported Past Surgical History: No Surgical Hx Reported Past Anesthesia/Blood Transfusion Reactions: No Reported Reaction Past Psychological History: No Psychological Hx Reported Smoking Status: Current every day smoker Past Alcohol Use History: Occasional Past Drug Use History: Marijuana Medications and Allergies Home Medications Medication Instructions Recorded Confirmed Type Cephalexin [Keflex] 500 mg PO Q6HR 7 Days #28 cap 09/09/20 09/13/20 Rx HYDROcodone/APAP 5-325MG [[place] 1 tab PO Q6HR PRN 3 Days #12 tab 09/09/20 09/13/20 Rx 5-325] Allergies Allergy/AdvReac Type Severity Reaction Status Date / Time aspirin AdvReac Nausea & Verified 09/13/20 12:30 Vomiting Physical Examination - Ankle & Foot left Ankle appearance: swelling (Significant diffuse medial and lateral ankle swelling), erythema (Significant erythema extending from the foot dorsum up to the upper echavarria), other (Definite palpable fluctuance) Foot appearance: swelling, erythema Foot swelling: dorsal ROM: dorsiflexion: 0 degrees ROM: plantarflexion: 30 degrees Strength: dorsiflexion: 5/5 Strength: plantarflexion: 5/5 Strength: inversion: 5/5 Strength: eversion: 5/5 Instability: anterior talofibular ligament injury tests: positive, calcane ofibular ligament injury tests: positive, posterior talofibular injury tests: positive Results CRP elevated - Labs Labs: Abnormal Lab Results - Last 24 Hours (Table) 09/13/20 09/13/20 09/13/20 Range/Units 13:01 13:01 19:19 Plt Count 465 H (150-450) k/uL ESR 22 H (0-15) mm/hr Sodium 135 L (137-145) mmol/L Carbon Dioxide 33 H (22-30) mmol/L Creatinine 0.42 L 0.36 L (0.66-1.25) mg/dL Glucose 107 H 127 H (74-99) mg/dL Calcium 10.3 H (8.4-10.2) mg/dL Alkaline Phosphatase 166 H (38-126) U/L Creatine Kinase 51 L (55-170) U/L C-Reactive Protein 6.3 H (<1.0) mg/dL Total Protein 6.1 L (6.3-8.2) g/dL Albumin 3.2 L (3.5-5.0) g/dL Ur Specific [place] (1.001-1.035) Urine Protein (Negative) 09/13/20 Range/Units 19:39 Plt Count (150-450) k/uL ESR (0-15) mm/hr Sodium (137-145) mmol/L Carbon Dioxide (22-30) mmol/L Creatinine (0.66-1.25) mg/dL Glucose (74-99) mg/dL Calcium (8.4-10.2) mg/dL Alkaline Phosphatase (38-126) U/L Creatine Kinase (55-170) U/L C-Reactive Protein (<1.0) mg/dL Total Protein (6.3-8.2) g/dL Albumin (3.5-5.0) g/dL Ur Specific [place] 1.045 H (1.001-1.035) Urine Protein Trace H (Negative) H & H 09/13/20 Range/Units 13:01 Hgb 15.3 (13.0-17.5) gm/dL Hct 46.9 (39.0-53.0) % Result Diagrams: 09/13/20 13:01 09/13/20 19:19 - Diagnostic results Ankle/Foot CT: report reviewed (Significant subcutaneous edema/no definite pockets of fluid/purulence, no definite bony abnormality) Assessment and Plan Assessment: Left lateral ankle sprain/traumatic contusion left leg Significant cellulitis left lower extremity Plan: IV antibiotics per infectious disease Partial weightbearing as tolerated in the walking boot with a walker We'll continue to monitor No surgical intervention at this time. Time with Patient: Greater than 30
[2020-09-14] MEDS: PANTOPRAZOLE 40 MG/10 ML VIAL IV SCH (08:27)
[2020-09-14 11:40] LABS: Basophils # (A) 0.05 X 10*3/uL (0.00-0.10); Basophils % (A) 0.7 %; Eosinophils # (A) 0.25 X 10*3/uL (0.04-0.35); Eosinophils % (A) 3.4 %; HCT 41.8 % (39.6-50.0); HGB 13.6 g/dL (13.0-17.0); Lymphocytes # (A) 1.15 X 10*3/uL (0.90-5.00); Lymphocytes % (A) 15.5 %; MCH 31.4 pg (27.0-32.0); MCHC 32.5 g/dL (32.0-37.0); MCV 96.5 fL (80.0-97.0); Mean Platelet Volume 8.8 fL (9.5-12.2); Monocytes # (A) 0.79 X 10*3/uL (0.20-1.00); Monocytes % (A) 10.7 %; Neutrophils # (A) 5.13 X 10*3/uL (1.80-7.70); Neutrophils % (A) 69.3 %; Platelet Count 391 X 10*3/uL (140-440); RBC 4.33 X 10*6/uL (4.40-5.60); RDW 13.2 % (11.5-14.5)
[2020-09-14] MEDS: HYDROcodone/APAP 5-325MG 1 EACH TAB PO PRN (12:03)
[2020-09-14] MEDS ORDERED: VANCOMYCIN TROUGH DUE 1 EACH MISC MISCELLANE ONE (15:00)
[2020-09-14] MEDS ORDERED: cloNIDine HCL 0.1 MG TAB PO PRN (15:47)
[2020-09-14 15:52] LABS: African American GFR (CKD) >90 (>60 ml/min/1.73 sqM); Non-African American GFR(CKD) >90 (>60 ml/min/1.73 sqM)
[2020-09-14] MEDS: NICOTINE 14MG/24HR PATCH TRANSDERM SCH (16:12)
[2020-09-14] MEDS: cloNIDine HCL 0.1 MG TAB PO SCH ×2 (16:12→21:21)
--- NOTE | 2020-09-14 17:54 | PN ---
PROGRESS NOTE DATE OF SERVICE: 09/14/2020 This 55-year-old gentleman admitted with significant infection with failure of outpatient treatment is being closely monitored. Initially compartment syndrome was suspected, but the lower extremity CT scan which was reviewed personally by me showed significant cellulitis. Orthopedics are following the patient. Infectious disease evaluation has been sought. Cultures have been obtained. Broad-spectrum IV antibiotics also have been recommended at this time. Possibly the patient also had left lateral ankle sprain and traumatic contusion of the left leg. Past medical history reviewed. REVIEW OF SYSTEMS: CARDIOVASCULAR SYSTEM: No angina, palpitations. RESPIRATORY SYSTEM: As mentioned earlier. GI: As mentioned earlier. : No dysuria or retention. NERVOUS SYSTEM: No numbness, weakness. CURRENT MEDICATIONS: Reviewed. They include Tylenol, [place], Xanax, Narcan, Protonix, Zosyn. PHYSICAL EXAMINATION: Patient is alert, oriented x3. Pulse 76, blood pressure 163/85, respiration 18, temperature 98.2, pulse ox 93% on room air. HEENT: Conjunctivae normal. NECK: No jugular venous distention. CARDIOVASCULAR SYSTEM: S1, S2 muffled. RESPIRATORY SYSTEM: Breath sounds diminished at the bases. A few scattered rhonchi. ABDOMEN: Soft, non-tender. LEGS: Significant swelling and pain of the left leg. NERVOUS SYSTEM: No focal deficit. LABS: Sodium 135. Other labs are noted. ASSESSMENT: 1. Pain and swelling with acute severe left lower leg cellulitis with no evidence of any myositis or compartment syndrome with failure of outpatient treatment. 2. Gait dysfunction. 3. Elevated platelet counts. 4. Hypertension. 5. Increased carbon dioxide. 6. Increased random blood sugar. 7. Elevated CRP. 8. Elevated serum calcium level. 9. History of cerebrovascular accident, transient ischemic attack. 10.History of diverticulitis. 11.History of nicotine dependence. 12.History of tetrahydrocannabinol. 13.FULL CODE. RECOMMENDATIONS AND DISCUSSION: I recommend to continue current medications, continue with the monitoring, symptomatic treatment. Continue with the broad-spectrum IV antibiotics. Follow the cultures. Infectious disease evaluation. CK is normal. Guarded prognosis because of multiple complex medical issues. Further recommendations to follow. I would also recommend adding clonidine to the current regimen. Further recommendations to follow. MMODL / IJN: [id number] /
[2020-09-14] MEDS: HEPARIN SODIUM,PORCINE/PF 5,000 UNIT/0.5 ML SYRINGE SQ SCH (21:21)
--- NOTE | 2020-09-14 23:30 | P.CONS ---
History of Present Illness - Reason for Consult Consult date: 09/14/20 Cellulitis Requesting physician: Sofia Mcghee - Chief Complaint left leg pain , swelling and redness x few days - History of Present Illness Patient is a 55-year male presenting with for evaluation of left lower extremity pain swelling and redness patient apparently did have an injury while at work on 08/25/2020 patient subsequently having the swelling and redness of left lower extremity with associated pain patient is having the pain to be more of a throbbing nature intensity 7-8 out of 10 and no radiation with associated diffuse swelling redness has been treated with the oral Keflex in the outpatient setting without any improvement as the patient was in the hospital on arrival to the ER the patient has been afebrile patient had did have a normal white count sed rate of 22 creatinine was normal CRP 6.3 urine was negative Cor-oticin was negative patient did have a lower extremity CT which showed diffuse subcutaneous edema consistent with cellulitis no drainable fluid collection patient also have a lower extremity Doppler that has been negative for DVT with evidence of left popliteal fossa cyst patient has been started on vancomycin and Zosyn infectious was consulted with concern for left lower extremity cellulitis Review of Systems Positive point has been mentioned in the HPI rest of the systems are negative Past Medical History Past Medical History: COPD, CVA/TIA Additional Past Medical History / Comment(s): divirticultis, pt states he was told he might've had an MS when he was around 28 years old History of Any Multi-Drug Resistant Organisms: None Reported Past Surgical History: No Surgical Hx Reported Past Anesthesia/Blood Transfusion Reactions: No Reported Reaction Past Psychological History: No Psychological Hx Reported Smoking Status: Current every day smoker Past Alcohol Use History: Occasional Past Drug Use History: Marijuana Medications and Allergies Home Medications Medication Instructions Recorded Confirmed Type Cephalexin [Keflex] 500 mg PO Q6HR 7 Days #28 cap 09/09/20 09/13/20 Rx HYDROcodone/APAP 5-325MG [Corinne 1 tab PO Q6HR PRN 3 Days #12 tab 09/09/20 09/13/20 Rx 5-325] Allergies Allergy/AdvReac Type Severity Reaction Status Date / Time aspirin AdvReac Nausea & Verified 09/13/20 12:30 Vomiting Physical Exam Vitals: Vital Signs Temp Pulse Pulse Resp BP BP Pulse Ox 09/14/20 08:00 84 18 09/14/20 02:00 98.3 F 84 18 144/71 93 L 09/13/20 22:30 18 09/13/20 20:40 98.2 F 77 18 159/86 92 L 09/13/20 20:02 98.0 F 71 18 139/86 96 09/13/20 18:01 98.2 F 83 18 154/77 93 L 09/13/20 15:32 155/83 09/13/20 14:12 98.1 F 80 18 155/102 95 09/13/20 11:51 98.2 F 87 18 144/88 93 L Intake and Output 09/13/20 09/14/20 09/14/20 22:59 06:59 14:59 Intake Total 250 600 Balance 250 600 Intake: Intake, IV Titration 350 Amount Piperacillin-Tazobactam 3 100 .375 gm In Sodium Chloride 0.9% 100 ml @ 25 mls/hr IVPB Q8H DAR Rx#: [id number] Vancomycin 1,500 mg In 250 Sodium Chloride 0.9% 250 ml @ 125 mls/hr IVPB Q8H DAR Rx#:[id number] Oral 250 250 Other: Voiding Method Toilet Toilet # Voids 1 2 Weight 95.254 kg GENERAL DESCRIPTION: Middle-aged male lying in bed, no distress. No tachypnea or accessory muscle of respiration use. HEENT: Shows Pallor , no scleral icterus. Oral mucous membrane is dry. No pharyngeal erythema or thrush NECK: Trachea central, no thyromegaly. LUNGS: Unlabored breathing. Clear to auscultation anteriorly. No wheeze or crackle. HEART: S1, S2, regular rate and rhythm. No loud murmur ABDOMEN: Soft, no tenderness , guarding or rigidity, no organomegaly EXTREMITIES: No edema of feet. SKIN: No rash, no masses palpable. NEUROLOGICAL: The patient is awake, alert, oriented x3, mood and affect normal. Results CBC & Chem 7: 09/14/20 06:20 09/14/20 15:16 Labs: Abnormal Lab Results - Last 24 Hours (Table) 09/13/20 09/13/20 09/13/20 Range/Units 13:01 13:01 19:19 Plt Count 465 H (150-450) k/uL ESR 22 H (0-15) mm/hr Sodium 135 L (137-145) mmol/L Carbon Dioxide 33 H (22-30) mmol/L Creatinine 0.42 L 0.36 L (0.66-1.25) mg/dL Glucose 107 H 127 H (74-99) mg/dL Calcium 10.3 H (8.4-10.2) mg/dL Alkaline Phosphatase 166 H (38-126) U/L Creatine Kinase 51 L (55-170) U/L C-Reactive Protein 6.3 H (<1.0) mg/dL Total Protein 6.1 L (6.3-8.2) g/dL Albumin 3.2 L (3.5-5.0) g/dL Ur Specific Stanton (1.001-1.035) Urine Protein (Negative) 09/13/20 Range/Units 19:39 Plt Count (150-450) k/uL ESR (0-15) mm/hr Sodium (137-145) mmol/L Carbon Dioxide (22-30) mmol/L Creatinine (0.66-1.25) mg/dL Glucose (74-99) mg/dL Calcium (8.4-10.2) mg/dL Alkaline Phosphatase (38-126) U/L Creatine Kinase (55-170) U/L C-Reactive Protein (<1.0) mg/dL Total Protein (6.3-8.2) g/dL Albumin (3.5-5.0) g/dL Ur Specific Stanton 1.045 H (1.001-1.035) Urine Protein Trace H (Negative) Assessment and Plan Assessment: 1-patient presented to hospital with left lower extremity pain swelling and redness since patient did have diffuse swelling and redness likely streptococcal cellulitis failing outpatient oral Keflex more likely because of the burden of disease clinically doubt MRSA or gram-negative infection Plan: 1-jarvis the area of the redness 2-discontinue vancomycin and Zosyn decrease risk of nephrotoxicity 3-start the patient cefazolin 2 g every 8 hours We will follow on clinical condition and cultures to further adjust medication if needed Thank you for this consultation we will follow the patient along with you Time with Patient: Greater than 30
[2020-09-15 07:25] LABS: African American GFR (CKD) >90 (>60 ml/min/1.73 sqM); Non-African American GFR(CKD) >90 (>60 ml/min/1.73 sqM)
[2020-09-15] MEDS: cloNIDine HCL 0.1 MG TAB PO SCH ×2 (07:47→20:16)
[2020-09-15] MEDS: PANTOPRAZOLE 40 MG/10 ML VIAL IV SCH (07:47)
[2020-09-15] MEDS: NICOTINE 14MG/24HR PATCH TRANSDERM SCH (07:47)
[2020-09-15] MEDS: HEPARIN SODIUM,PORCINE/PF 5,000 UNIT/0.5 ML SYRINGE SQ SCH ×2 (07:47→20:16)
[2020-09-15] MEDS: HYDROcodone/APAP 5-325MG 1 EACH TAB PO PRN ×2 (07:54→16:29)
--- NOTE | 2020-09-15 12:11 | P.PN ---
Subjective Progress Note Date: 09/15/20 Patient says he has been doing better. He says he has been up and around the room and says his left lower leg and foot/ankle have been doing better as far as pain goes. He does mention the redness is going down. He says he still is having some swelling/tightness. He does say he has been able to use the bathroom and has been eating well. He denies any fever, chest pain, shortness of breath, vision changes, nausea, vomiting. Objective - Vital Signs Vital signs: Vital Signs Temp 98.2 F 09/15/20 08:00 Pulse 82 09/15/20 08:00 Resp 17 09/15/20 08:00 BP 146/73 09/15/20 08:00 Pulse Ox 90 L 09/15/20 08:00 Intake & Output 09/14/20 09/15/20 09/15/20 18:59 06:59 18:59 Intake Total 540 Balance 540 Intake: Oral 540 Other: Voiding Method Toilet Toilet # Voids 3 2 - Labs CBC & Chem 7: 09/14/20 06:20 09/15/20 05:56 Labs: Abnormal Lab Results - Last 24 Hours (Table) 09/14/20 09/15/20 Range/Units 15:16 05:56 Creatinine 0.47 L 0.51 L (0.66-1.25) mg/dL Microbiology - Last 24 Hours (Table) 09/13/20 13:01 Blood Culture - Preliminary Blood No Growth after 24 hours 09/13/20 13:01 Blood Culture - Preliminary Blood No Growth after 24 hours Assessment and Plan Assessment: - Left lateral ankle sprain; contusion left lower leg - Cellulitis left lower extremity Plan: 1. Left lateral ankle sprain - weightbearing as tolerated with a walking boot and walker; no surgical intervention recommended at this time. We will continue to monitor while in hospital 2. Cellulitis left lower extremity - continue antibiotics per infectious disease 3 Appreciate medical management 4. Pain management - stable at this time 5. GI prophylaxis/DVT prophylaxis 6. PT/OT - up out of bed 4 times a day. Weightbearing as tolerated and walking boot with a walker Time with Patient: Less than 30
--- NOTE | 2020-09-15 20:13 | PN ---
PROGRESS NOTE DATE OF SERVICE: 09/15/2020 This 55-year-old gentleman who was admitted with pain and swelling and cellulitis of the leg is improving significantly. No chest pain. No palpitations. No fever. The white count is 7.4 today. PHYSICAL EXAMINATION: Alert and oriented x3. Pulse is 75, blood pressure 141/78, respiration 18, temperature 98 degrees, pulse ox 92% on room air. HEENT: Conjunctivae normal. NECK: No jugular venous distention. CARDIOVASCULAR SYSTEM: S1, S2 muffled. RESPIRATORY SYSTEM: Breath sounds diminished at the bases. No rhonchi. No crackles. ABDOMEN: Soft. LEFT LEG: Pain and swelling and some erythema and discoloration also present. LABS: Noted. ASSESSMENT: 1. Pain and swelling with acute severe left lower leg cellulitis without any evidence of myositis or compartment syndrome with failure of outpatient treatment. 2. Gait dysfunction. 3. Elevated platelet counts. 4. Hypertension. 5. History of carbon dioxide. 6. Increased random blood glucose. 7. Elevated CRP. 8. Elevated serum calcium level. 9. History of cerebrovascular accident, transient ischemic attack. 10.History of diverticulitis. 11.History of nicotine dependence. 12.History of tetrahydrocannabinol. 13.FULL CODE. RECOMMENDATIONS AND DISCUSSION: I recommend to continue current medications, continue with the monitoring, symptomatic treatment. Continue with IV antibiotics. Closely monitor. The cultures are negative so far. Will continue to monitor. Guarded prognosis. Further recommendations to follow. MMODL / IJN: [id number] /
--- NOTE | 2020-09-15 21:50 | PN ---
PROGRESS NOTE DATE OF SERVICE: 09/23/2020 REASON FOR FOLLOWUP: Left lower extremity cellulitis. INTERVAL HISTORY: The patient is currently afebrile. The patient is breathing comfortably. The patient denies having any chest pain, shortness of breath or cough. No abdominal pain or diarrhea. PHYSICAL EXAMINATION: Blood pressure is 151/84, pulse of 81, temperature 98. He is 92% on room air. General description is a middle-aged male lying in bed in no distress. RESPIRATORY SYSTEM: Unlabored breathing. Clear to auscultation anteriorly. HEART: S1, S2. Regular rate and rhythm. ABDOMEN: Soft. No tenderness. Left leg swelling and redness have slightly decreased. LABS: Hemoglobin is 13.6, white count 7.40, creatinine 0.51. DIAGNOSTIC IMPRESSION AND PLAN: Patient with acute left lower extremity cellulitis. The patient has shown clinical response to the cefazolin; to continue another 24 hours. Chu wrap to the leg to keep the swelling down and re-evaluate the patient tomorrow. MMODL / IJN: [id number] /
[2020-09-16] MEDS ORDERED: PANTOPRAZOLE 40 MG TABLET PO SCH (07:30)
[2020-09-16 08:15] VITALS: BP 156/91; PULSE 86; RESP 18; TEMP 98.2
[2020-09-16] MEDS: HYDROcodone/APAP 5-325MG 1 EACH TAB PO PRN (08:19)
[2020-09-16] MEDS: NICOTINE 14MG/24HR PATCH TRANSDERM SCH (08:20)
[2020-09-16] MEDS: cloNIDine HCL 0.1 MG TAB PO SCH (08:20)
[2020-09-16] MEDS: HEPARIN SODIUM,PORCINE/PF 5,000 UNIT/0.5 ML SYRINGE SQ SCH (08:20)
--- NOTE | 2020-09-16 10:01 | P.PN ---
Subjective Progress Note Date: 09/16/20 Patient says he has been doing better. Patient does say that Chu bandage has been helping with swelling. He says he has been up and around the room and says his left lower leg and foot/ankle have been doing better as far as pain goes. He does mention the redness is going down. He says he still is having some swelling/tightness but this has been getting better since yesterday. He does say he has been able to use the bathroom and has been eating well. He denies any fever, chest pain, shortness of breath, vision changes, nausea, vomiting. Objective - Vital Signs Vital signs: Vital Signs Temp 98.2 F 09/16/20 07:20 Pulse 86 09/16/20 07:20 Resp 18 09/16/20 07:20 BP 156/91 09/16/20 07:20 Pulse Ox 92 L 09/16/20 07:20 Intake & Output 09/15/20 09/16/20 09/16/20 18:59 06:59 18:59 Intake Total 540 Balance 540 Intake: Oral 540 Other: Voiding Method Toilet - Exam Chu bandage wrap was removed to evaluate for swelling and erythema on left lower extremity. Erythema has decreased considerably over the anterior tibia area. Erythema still present over the left ankle and left foot on the ventral side. Patient able to anthony and invert foot 5 out of 5. Plantar flexion and dorsiflexion strength 4 out of 5. Swelling is decreased as well in the left foot. No evident ulcers, fluctuance, wounds on left lower extremity - Labs CBC & Chem 7: 09/14/20 06:20 09/15/20 05:56 Labs: Microbiology - Last 24 Hours (Table) 09/13/20 13:01 Blood Culture - Preliminary Blood No Growth after 48 hours 09/13/20 13:01 Blood Culture - Preliminary Blood No Growth after 48 hours Assessment and Plan Assessment: - Left lateral ankle sprain; contusion left lower leg - Cellulitis left lower extremity Plan: 1. Left lateral ankle sprain - weightbearing as tolerated with a walking boot and walker; no surgical intervention recommended at this time. From an orthopedic standpoint, patient is stable. We'll continue to monitor patient while in hospital. 2. Cellulitis left lower extremity - continue antibiotics per infectious disease 3 Appreciate medical management/infectious disease 4. Pain management - stable at this time 5. GI prophylaxis/DVT prophylaxis 6. PT/OT - up out of bed 4 times a day. Weightbearing as tolerated and walking boot with a walker Time with Patient: Less than 30
--- NOTE | 2020-09-16 12:07 | PN ---
PROGRESS NOTE DATE OF SERVICE: 09/16/2020 REASON FOR FOLLOWUP: Left leg cellulitis. INTERVAL HISTORY: The patient is currently afebrile. The patient is breathing comfortably. The patient denies having any chest pain, shortness of breath or cough. No nausea, vomiting, no abdominal pain. Left leg swelling and redness has decreased. PHYSICAL EXAMINATION: VITAL SIGNS: Blood pressure 156/91 with a pulse of 86, temperature 98.2. He is 92% on room air. GENERAL DESCRIPTION: A middle-aged male lying in bed in no distress. RESPIRATORY SYSTEM: Unlabored breathing, clear to auscultation anteriorly. HEART: S1, S2. Regular rate and rhythm. ABDOMEN: Soft, no tenderness. EXTREMITIES: Left leg swelling and redness has decreased. LABS: Creatinine 0.51. DIAGNOSTIC IMPRESSION AND PLAN: Patient with acute left lower extremity cellulitis with overall improvement with decrease in swelling and redness. White count normal. Culture negative. Will finish therapy with oral Keflex 500 mg p.o. q.6 hours for 10 days. Prescription sent to the pharmacy. Close outpatient followup. MMODL / IJN: [id number] /
--- NOTE | 2020-09-17 06:31 | DS ---
DISCHARGE SUMMARY FINAL DIAGNOSIS: 1. Pain and swelling of the left leg with acute severe cellulitis without any evidence of myositis or compartment syndrome with failure of outpatient treatment. 2. Gait dysfunction. 3. Elevated platelet counts. 4. Hypertension. 5. History of increased CO2. 6. Increased random blood glucose. 7. Elevated CRP. 8. Elevated serum calcium level. 9. History of cerebrovascular accident, transient ischemic attack. 10.History of diverticulitis. 11.History of nicotine dependence. 12.History of THC. 13.FULL CODE. DISPOSITION: The patient will be discharged in stable condition with guarded prognosis. HISTORY OF PRESENT ILLNESS: This 55-year-old gentleman with the with past medical history of multiple medical problems, as mentioned earlier, being followed by Dr. Maxine Yun and Ailin Rose, was admitted with significant pain and swelling of the left leg. The patient treated with antibiotics. There is no history of compartment syndrome or myositis. Dr. Hall saw the patient. Orthopedics saw the patient also. Sprain was also suspected. Overall patient made significant improvement. The patient was recommended to continue the Chu bandage and as well as raise the leg. Followup with multiple consultants also in the outpatient setting. The patient is seeing Dr. Kwan from Orthopedic surgery. PHYSICAL EXAMINATION: On exam vitals stable. Cardiovascular S1 and S1. Abdomen soft. Nervous system with left leg some swelling present. DISCHARGE INSTRUCTIONS: Discharge diet is cardiac. Activity limited until followup. Otherwise medications are Catapres 0.1 p.o. b.i.d., Keflex 500 mg q.6 hours for 10 days, [place] 5 mg q.6 p.r.n., Protonix 40 mg daily. Follow up with Dr. Kwan and Dr. Hall as recommended. MMODL / IJN: [id number] /
== END 2020-09-16 15:45 | disposition home or self-care (01) | DRG 603 ==
LOC: EC 11:48 → 4SSUR 15:17
PROVIDERS: ADMIT Hospitalist; ATTEND Hospitalist
DX: L03.116 Cellulitis of left lower limb (principal); S80.12XD Contusion of left lower leg, subsequent encounter; S93.402D Sprain of unspecified ligament of left ankle, subsequent encounter; F17.200 Nicotine dependence, unspecified, uncomplicated; I10 Essential (primary) hypertension; J44.9 Chronic obstructive pulmonary disease, unspecified; Z86.73 Personal history of transient ischemic attack (TIA), and cerebral infarction without residual deficits
CPT/HCPCS: 36415; 80053; 80202; 81003; 82550; 82565; 83605; 85025; 85652; 86140; 87040; 87636; 96361; 96374; 99285

== ENCOUNTER 2024-09-15 10:53 | Inpatient (IN) | payer OTHER ==
--- NOTE | 2024-09-15 11:35 | ED ---
General Adult HPI - General Chief complaint: Chest Pain Stated complaint: SOB Time Seen by Provider: 09/15/24 11:00 Source: patient, RN notes reviewed, old records reviewed Mode of arrival: ambulatory Limitations: no limitations - History of Present Illness Initial comments: This is a 59-year-old male who presents to the emergency department complaining that he went to donate plasma today and they told him his heart rate was too fast. Patient states he has not had a history of this that he knows of. Patient states he is a heavy drinker and he also states that he has been thinking of suicide quite a bit lately. Patient denies any past attempts of suicide patient also denies any mental health history. Patient states he is quite a regular drinker however. Patient states he has been feeling a little lightheaded and short of breath lately. - Related Data Home Medications Medication Instructions Recorded Confirmed No Known Home Medications 12/15/21 09/15/24 Allergies Allergy/AdvReac Type Severity Reaction Status Date / Time aspirin AdvReac Nausea & Verified 09/15/24 13:54 Vomiting Review of Systems ROS Statement: Those systems with pertinent positive or pertinent negative responses have been documented in the HPI. ROS Other: All systems not noted in ROS Statement are negative. Past Medical History Past Medical History: COPD, CVA/TIA Additional Past Medical History / Comment(s): divirticultis, pt states he was told he might've had an SD when he was around 28 years old History of Any Multi-Drug Resistant Organisms: None Reported Past Surgical History: No Surgical Hx Reported Past Anesthesia/Blood Transfusion Reactions: No Reported Reaction Past Psychological History: No Psychological Hx Reported Smoking Status: Current every day smoker Past Alcohol Use History: Occasional Past Drug Use History: Marijuana General Exam - General Exam Comments Initial Comments: GENERAL: Patient is well-developed and well-nourished. Patient is nontoxic and well- hydrated and is in mild distress. ENT: Neck is soft and supple. No significant lymphadenopathy is noted. Oropharynx is clear. Moist mucous membranes. Neck has full range of motion without eliciting any pain. EYES: The sclera were anicteric and conjunctiva were pink and moist. Extraocular movements were intact and pupils were equal round and reactive to light. Eyelids were unremarkable. PULMONARY: Unlabored respirations. Good breath sounds bilaterally. No audible rales rhonchi or wheezing was noted. CARDIOVASCULAR: Patient has an irregular heartbeat at about 150 beats a minute ABDOMEN: Soft and nontender with normal bowel sounds. SKIN: Skin is clear with no lesions or rashes and otherwise unremarkable. NEUROLOGIC: Patient is alert and oriented x3. Cranial nerves II through XII are grossly intact. Motor and sensory are also intact. Normal speech, volume and content. Symmetrical smile. MUSCULOSKELETAL: Normal extremities with adequate strength and full range of motion. LYMPHATICS: No significant lymphadenopathy is noted PSYCHIATRIC: Normal psychiatric evaluation. Limitations: no limitations Course Vital Signs 09/15/24 09/15/24 09/15/24 10:55 11:12 11:17 Temperature 97.9 F Pulse Rate 69 151 H 160 H Respiratory 18 20 Rate Blood Pressure 93/62 106/84 O2 Sat by Pulse 98 94 L Oximetry 09/15/24 09/15/24 09/15/24 11:24 11:30 12:00 Temperature Pulse Rate 186 H 156 H 138 H Respiratory 23 20 20 Rate Blood Pressure 113/102 91/72 133/84 O2 Sat by Pulse 93 L 94 L 94 L Oximetry 09/15/24 09/15/24 12:30 13:00 Temperature Pulse Rate 146 H 124 H Respiratory 20 17 Rate Blood Pressure 115/82 120/77 O2 Sat by Pulse 94 L 93 L Oximetry Medical Decision Making - Medical Decision Making EKG is interpreted by myself. EKG shows atrial fibrillation with rapid ventricular response at 152 bpm QRS is 83 QT interval is 271 QTc is 357. Patient's EKG shows no ST segment elevation or depression Was pt. sent in by a medical professional or institution (, PA, [employer], urgent care, hospital, or shelter...) When possible be specific @ -No Did you speak to anyone other than the patient for history (EMS, parent, family, police, friend...)? What history was obtained from this source @ -No Did you review nursing and triage notes (agree or disagree)? Why? @ -I reviewed and agree with nursing and triage notes Were old charts reviewed (outside hosp., previous admission, EMS record, old EKG, old radiological studies, urgent care reports/EKG's, shelter records)? Report findings @ -No old charts were reviewed Differential Diagnosis? @ -Differential Palpitations Ventricular arrhythmias, atrial arrhythmias, myocardial infarction, anemia, thyrotoxicosis, electrolyte imbalance, hypokalemia, pulmonary embolism, pulmonary disease, drugs, alcohol, anxiety, stress.... This is not meant to be an all-inclusive list. Differential Mental Health Depression, anxiety, bipolar, psychosis, schizophrenia, borderline personality, situational depression, adjustment disorder, behavioral disorder, brain tumor, malingering, substance abuse, encephalopathy, medication reaction, dementia, hy pothyroidism, degenerative neurologic disorder, lupus.... This is not meant to be all-inclusive list EKG interpreted by me (3pts min.). @ -As above X-rays interpreted by me (1pt min.). @ -Chest x-ray shows no acute abnormality CT interpreted by me (1pt min.). @ -None done U/S interpreted by me (1pt. min.). @ -None done What testing was considered but not performed or refused? (CT, X-rays, U/S, la bs)? Why? @ -None What meds were considered but not given or refused? Why? @ -None Did you discuss the management of the patient with other professionals (professionals i.e. , PA, [employer], lab, RT, psych nurse, social and political studies professor, jigsaw operator, teacher, accounting officer, rehabilitation case coordinator)? Give summary @ -I spoke with Dr. Jose he agreed to admit the patient admit the patient wrote admitting orders Was smoking cessation discussed for >3mins.? @ -No Was critical care preformed (if so, how long)? @ -35 minutes Were there social determinants of health that impacted care today? How? (Homelessness, low income, unemployed, alcoholism, drug addiction, transportation, low edu. Level, literacy, decrease access to med. care, assisted, rehab)? @ -No Was there de-escalation of care discussed even if they declined (Discuss DNR or withdrawal of care, Hospice)? DNR status @ -No What co-morbidities impacted this encounter? (DM, HTN, Smoking, COPD, CAD, Cancer, CVA, ARF, Chemo, Hep., AIDS, mental health diagnosis, sleep apnea, morbid obesity)? @ -None Was patient admitted / discharged? Hospital course, mention meds given and route, prescriptions, significant lab abnormalities, going to OR and other pertinent info. @ -Patient was placed on Cardizem after Cardizem bolus. Patient was also given a heparin bolus as well as placed on heparin drip. Patient's heart rate did come down nicely. Patient will be admitted to Dr. Jose with a cardiology consult. Undiagnosed new problem with uncertain prognosis? @ -No Drug Therapy requiring intensive monitoring for toxicity (Heparin, Nitro, Insulin, Cardizem)? @ -No Were any procedures done? @ -No Diagnosis/symptom? @ -Atrial fibrillation with rapid ventricular response Acute, or Chronic, or Acute on Chronic? @ -Acute Uncomplicated (without systemic symptoms) or Complicated (systemic symptoms)? @ -Complicated Side effects of treatment? @ -No Exacerbation, Progression, or Severe Exacerbation? @ -No Poses a threat to life or bodily function? How? (Chest pain, USA, SD, pneumonia, PE, COPD, DKA, ARF, appy, cholecystitis, CVA, Diverticulitis, Homicidal, Suicidal, threat to staff... and all critical care pts) @ -Yes this can lead to poor perfusion and endorgan dysfunction - Lab Data Result diagrams: 09/15/24 12:01 09/15/24 12:01 Lab Results 09/15/24 09/15/24 09/15/24 Range/Units 12:01 12:01 12:01 WBC 5.80 (4.50-10.00) 10*3/uL RBC 4.47 (4.40-5.60) 10*6/uL Hgb 14.2 (13.0-17.0) g/dL Hct 40.8 (39.6-50.0) % MCV 91.3 (80.0-97.0) fL MCH 31.8 (27.0-32.0) pg MCHC 34.8 (32.0-37.0) g/dL Plt Count 184 (140-440) 10*3/uL MPV 9.0 L (9.5-12.2) fL Immature Gran % (Auto) 0.3 % Neutrophils % 75.1 % Lymphocytes % 15.7 % Monocytes % 7.9 % Eosinophils % 0.5 % Basophils % 0.5 % Immature Gran # 0.02 (0.00-0.04) 10*3/uL Neutrophils # 4.35 (1.80-7.70) 10*3/uL Lymphocytes # 0.91 (0.90-5.00) 10*3/uL Monocytes # 0.46 (0.20-1.00) 10*3/uL Eosinophils # 0.03 L (0.04-0.35) 10*3/uL Basophils # 0.03 (0.00-0.10) 10*3/uL PT 10.6 (10.0-12.5) sec INR 0.9 (<1.2) APTT 23.6 (22.0-30.0) sec Sodium 132 L (137-145) mmol/L Potassium 3.5 (3.5-5.1) mmol/L Chloride 98 (98-107) mmol/L Carbon Dioxide 29 (22-30) mmol/L Anion Gap 5 mmol/L BUN 10 (9-20) mg/dL Creatinine 0.36 L (0.66-1.25) mg/dL Est GFR (CKD-EPI)AfAm >90 (>60 ml/min/1.73 sqM) Est GFR (CKD-EPI)NonAf >90 (>60 ml/min/1.73 sqM) Glucose 124 H (74-99) mg/dL Calcium 9.2 (8.4-10.2) mg/dL Magnesium 1.3 L (1.6-2.3) mg/dL Total Bilirubin 1.9 H (0.2-1.3) mg/dL AST 67 H (17-59) U/L ALT 40 (4-49) U/L Alkaline Phosphatase 107 (38-126) U/L Troponin I (0.000-0.034) ng/mL NT-Pro-B Natriuret Pep 2550 pg/mL Total Protein 6.0 L (6.3-8.2) g/dL Albumin 3.2 L (3.5-5.0) g/dL TSH 4.750 H (0.465-4.680) mIU/L Serum Alcohol <10 mg/dL 09/15/24 Range/Units 12:01 WBC (4.50-10.00) 10*3/uL RBC (4.40-5.60) 10*6/uL Hgb (13.0-17.0) g/dL Hct (39.6-50.0) % MCV (80.0-97.0) fL MCH (27.0-32.0) pg MCHC (32.0-37.0) g/dL Plt Count (140-440) 10*3/uL MPV (9.5-12.2) fL Immature Gran % (Auto) % Neutrophils % % Lymphocytes % % Monocytes % % Eosinophils % % Basophils % % Immature Gran # (0.00-0.04) 10*3/uL Neutrophils # (1.80-7.70) 10*3/uL Lymphocytes # (0.90-5.00) 10*3/uL Monocytes # (0.20-1.00) 10*3/uL Eosinophils # (0.04-0.35) 10*3/uL Basophils # (0.00-0.10) 10*3/uL PT (10.0-12.5) sec INR (<1.2) APTT (22.0-30.0) sec Sodium (137-145) mmol/L Potassium (3.5-5.1) mmol/L Chloride (98-107) mmol/L Carbon Dioxide (22-30) mmol/L Anion Gap mmol/L BUN (9-20) mg/dL Creatinine (0.66-1.25) mg/dL Est GFR (CKD-EPI)AfAm (>60 ml/min/1.73 sqM) Est GFR (CKD-EPI)NonAf (>60 ml/min/1.73 sqM) Glucose (74-99) mg/dL Calcium (8.4-10.2) mg/dL Magnesium (1.6-2.3) mg/dL Total Bilirubin (0.2-1.3) mg/dL AST (17-59) U/L ALT (4-49) U/L Alkaline Phosphatase (38-126) U/L Troponin I <0.012 (0.000-0.034) ng/mL NT-Pro-B Natriuret Pep pg/mL Total Protein (6.3-8.2) g/dL Albumin (3.5-5.0) g/dL TSH (0.465-4.680) mIU/L Serum Alcohol mg/dL Disposition Clinical Impression: Atrial fibrillation with RVR, Suicidal ideations Disposition: ADMITTED IP TO THIS [facility] Time of Disposition: 13:56
--- NOTE | 2024-09-15 12:05 | XR ---
EXAMINATION TYPE: XR chest 2V DATE OF EXAM: 09/15/2024 11:56 AM COMPARISON: Chest radiographs from CLINICAL INDICATION: Male, 59 years old with history of dysrhythmia, , TECHNIQUE: AP and lateral views FINDINGS: Heart borderline in size. Peribronchial cuffing and interstitial prominence. No wilver consolidation o r pleural effusion. Strandy atelectasis left base. Mild hyperinflation. IMPRESSION: 1. Possible underlying COPD. Clinically correlate. 2. Superimposed interstitial and peribronchial densities could reflect early pulmonary vascular conge stion versus bronchitis or asthma. [facility], Workstation: [facility], 09/15/2024 12:03 PM
[2024-09-15] MEDS: SODIUM CHLORIDE 0.9% 500 ML 500 ML IV STA (12:10)
[2024-09-15] MEDS: DILTIAZEM 5 MG/ML 5 ML VIAL IVP STA ×2 (12:10→12:12)
[2024-09-15 12:20] LABS: Basophils # (A) 0.03 10*3/uL (0.00-0.10); Basophils % (A) 0.5 %; Eosinophils # (A) 0.03 10*3/uL (0.04-0.35); Eosinophils % (A) 0.5 %; HCT 40.8 % (39.6-50.0); HGB 14.2 g/dL (13.0-17.0); Lymphocytes # (A) 0.91 10*3/uL (0.90-5.00); Lymphocytes % (A) 15.7 %; MCH 31.8 pg (27.0-32.0); MCHC 34.8 g/dL (32.0-37.0); MCV 91.3 fL (80.0-97.0); Monocytes # (A) 0.46 10*3/uL (0.20-1.00); Monocytes % (A) 7.9 %; Neutrophils # (A) 4.35 10*3/uL (1.80-7.70); Neutrophils % (A) 75.1 %; Platelet Count 184 10*3/uL (140-440); RBC 4.47 10*6/uL (4.40-5.60); RDW 14.3 % (11.5-14.5)
[2024-09-15] MEDS: DILTIAZEM 125 MG in DEXTROSE 5% IN WATER 100 ML IV SCH (12:21)
[2024-09-15 12:30] LABS: INR 0.9 (<1.2); Partial Thromboplastin Time 23.6 sec (22.0-30.0); Prothrombin Time 10.6 sec (10.0-12.5)
[2024-09-15 12:35] LABS: ALT 40 U/L (4-49); AST 67 U/L (17-59); African American GFR (CKD) >90 (>60 ml/min/1.73 sqM); Albumin 3.2 g/dL (3.5-5.0); Alcohol <10 mg/dL; Alkaline Phosphatase 107 U/L (38-126); Anion Gap 5 mmol/L; Blood Urea Nitrogen 10 mg/dL (9-20); Calcium 9.2 mg/dL (8.4-10.2); Carbon Dioxide 29 mmol/L (22-30); Chloride 98 mmol/L (98-107); Glucose 124 mg/dL (74-99); Magnesium 1.3 mg/dL (1.6-2.3); Non-African American GFR(CKD) >90 (>60 ml/min/1.73 sqM); Potassium 3.5 mmol/L (3.5-5.1); Sodium 132 mmol/L (137-145); Total Bilirubin 1.9 mg/dL (0.2-1.3)
[2024-09-15 12:43] LABS: NT-Pro-B-Type Natriuretic Pept 2550 pg/mL
[2024-09-15] MEDS: HEPARIN SODIUM 1,000 UN/ML (10ML VL) IV ONE (13:04)
[2024-09-15] MEDS: HEPARIN SOD,PORK IN 0.45% NACL 25,000 UNIT in 0.45% NACL 1 250ML.BAG IV SCH (13:07)
[2024-09-15] MEDS ORDERED: NITROGLYCERIN SL TABS 0.4 MG TAB SUBLINGUAL PRN (13:56)
[2024-09-15] MEDS: MAGNESIUM SULFATE-D5W PMX 1 GM in DEXTROSE/WATER 1 100ML.BAG IVPB ONE ×2 (14:53→23:47)
[2024-09-15 15:48] LABS: Amphetamine Screen,Urine Not Detected (NotDetected); Barbiturate Screen,Urine Not Detected (NotDetected); Benzodiazepines Screen,Urine Not Detected (NotDetected); Cocaine Screen,Urine Not Detected (NotDetected); Methadone Screen, Urine Not Detected (NotDetected); Opiate Screen,Urine Not Detected (NotDetected); Oxycodone Screen, Urine Not Detected (NotDetected); Phencyclidine Screen,Urine Not Detected (NotDetected); Tricyclic Antidepressant,Urine Not Detected (NotDetected); Urn Cannabinoid Scrn Not Detected (NotDetected)
--- NOTE | 2024-09-15 18:53 | P.HPIM ---
History of Present Illness H&P Date: 09/15/24 Chief Complaint: Rapid heart rate Patient is an 59-year-old male with a past medical history of COPD, CVA/TIA, alcohol use disorder, currently everyday smoker and occasional marijuana use was sent to ER due to rapid and irregular heart rate. Patient states that he went to donate plasma today and was told that his heart rate was fast and irregular. He was sent to ER for further evaluation. He was also complaining of shortness of breath and midsternal heaviness/pain. Denied any radiation of the pain. He felt lightheaded. Denied any recent illnesses. No fever no chills. No cough or sputum production. Patient does have a history of alcohol abuse and his last drink was 2 days ago. Patient also states that he has been having suicidal ideation but did not have actual plan. Denies any suicidal homicidal ideation. Chest x-ray showed possible underlying COPD. Correlate clinically. Superimposed interstitial and peribronchial densities could reflect early pulmo nary vascular congestion versus bronchitis or asthma. EKG showed atrial fibrillation with rapid ventricular response with aberrant conduction or ventricular premature complexes. Laboratory data showed WBC 5.8 hemoglobin 14.1 platelets 184 sodium 132 potassium 3.5 chloride 98 bicarbonate 29 BUN 10 and creatinine 0.36 and blood sugar 125 magnesium 1.3 AST 67 ALT 40 alk phos 107 troponin x 3 negative proBNP 2550 and TSH 4.75 UDS negative. Serum alcohol level less than 10 Review of Systems Constitutional: Patient denies any fever or chills . No generalized weakness or weight loss. Abdomen: Patient denied nausea vomiting and diarrhea and abdominal pain. Cardiovascular: Patient complains of chest tightness and Shortness of breath. No palpitations. No leg swelling. Respiratory: patient denied any cough or sputum production. Positive for shortness of breath Neurologic: Patient denied any numbness or tingling. no headache. Musculoskeletal: Patient denies any complaints of joint swelling or deformity. Skin: Negative Psychiatric: Negative Endocrine: No heat or cold intolerance. No recent weight gain. Genitourinary: No dysuria or hematuria. All other 14 point ROS negative except the above Past Medical History Past Medical History: COPD, CVA/TIA Additional Past Medical History / Comment(s): divirticultis, pt states he was told he might've had an SD when he was around 28 years old History of Any Multi-Drug Resistant Organisms: None Reported Past Surgical History: No Surgical Hx Reported Past Anesthesia/Blood Transfusion Reactions: No Reported Reaction Past Psychological History: No Psychological Hx Reported Smoking Status: Current every day smoker Past Alcohol Use History: Occasional Past Drug Use History: Marijuana Medications and Allergies Home Medications Medication Instructions Recorded Confirmed Type No Known Home Medications 12/15/21 09/15/24 History Allergies Allergy/AdvReac Type Severity Reaction Status Date / Time aspirin AdvReac Nausea & Verified 09/15/24 13:54 Vomiting Physical Exam Vitals: Vital Signs Temp Pulse Resp BP Pulse Ox 09/15/24 16:54 96 18 124/85 95 09/15/24 15:00 94 21 132/85 94 L 09/15/24 14:30 97 22 119/74 94 L 09/15/24 14:00 90 20 87/77 93 L 09/15/24 13:30 123 H 18 106/77 92 L 09/15/24 13:00 124 H 17 120/77 93 L 09/15/24 12:30 146 H 20 115/82 94 L 09/15/24 12:00 138 H 20 133/84 94 L 09/15/24 11:30 156 H 20 91/72 94 L 09/15/24 11:24 186 H 23 113/102 93 L 09/15/24 11:17 160 H 09/15/24 11:12 151 H 20 106/84 94 L 09/15/24 10:55 97.9 F 69 18 93/62 98 Intake and Output 09/15/24 09/15/24 09/15/24 06:59 14:59 22:59 Other: Weight 79.379 kg PHYSICAL EXAMINATION: Patient is lying in the bed comfortably, no acute distress, awake alert and oriented.. HEENT: Normocephalic. Neck is supple. Pupils reactive. Nostrils clear. Oral cavity is moist. Neck reveals no JVD, carotid bruits, or thyromegaly. CHEST EXAMINATION: Trachea is central. Symmetrical expansion. Lung mack clear to auscultation and percussion. CARDIAC: Normal S1, S2 with no gallops. Irregularly irregular rhythm. Gross ABDOMEN: Soft. Bowel sounds present. No organomegaly. No abdominal bruits. Extremities: reveal no edema. No clubbing or cyanosis Neurologically awake, alert, oriented x3 with well-coordinated movements. No focal deficits noted Skin: No rash or skin lesions. Psychiatric: Coperative. Nonsuicidal currently. Musculoskeletal: No joint swelling or deformity. Normal range of motion. Results CBC & Chem 7: 09/15/24 12:01 09/15/24 12:01 Labs: Abnormal Lab Results - Last 24 Hours (Table) 09/15/24 09/15/24 Range/Units 12: 12:01 MPV 9.0 L (9.5-12.2) fL Eosinophils # 0.03 L (0.04-0.35) 10*3/uL Sodium 132 L (137-145) mmol/L Creatinine 0.36 L (0.66-1.25) mg/dL Glucose 124 H (74-99) mg/dL Magnesium 1.3 L (1.6-2.3) mg/dL Total Bilirubin 1.9 H (0.2-1.3) mg/dL AST 67 H (17-59) U/L Total Protein 6.0 L (6.3-8.2) g/dL Albumin 3.2 L (3.5-5.0) g/dL TSH 4.750 H (0.465-4.680) mIU/L Thrombosis Risk Factor Assmnt - DVT/VTE Prophylaxis DVT/VTE Prophylaxis: Pharmacologic Prophylaxis ordered Assessment and Plan Assessment: New onset atrial fibrillation with rapid ventricular response Severe alcohol abuse. Last drink 48 hours ago Suicidal ideation Hypokalemia and hypomagnesemia Currently everyday smoker Occasional marijuana use GI prophylaxis. Plan: Patient will be continued on telemonitoring. Was started on Cardizem drip and heparin drip for anticoagulation. Thiamine and multivitamins. Monitor for alcohol withdrawal symptoms. Replace electrolytes. Cardiology was consulted for evaluation. Smoking cessation and alcohol abstinence has been counseled extensively. Time with Patient: Greater than 30
[2024-09-15] MEDS: HEPARIN SODIUM 1,000 UN/ML (10ML VL) IV PRN (19:56)
[2024-09-15] MEDS: POTASSIUM CHLORIDE ER 20 MEQ TAB.ER PO STA (23:47)
[2024-09-15] MEDS: THIAMINE 100 MG TAB PO SCH (23:51)
[2024-09-16 03:11] LABS: Basophils # (A) 0.05 10*3/uL (0.00-0.10); Eosinophils # (A) 0.23 10*3/uL (0.04-0.35); Eosinophils % (A) 4.5 %; HCT 37.8 % (39.6-50.0); HGB 12.7 g/dL (13.0-17.0); Lymphocytes # (A) 1.42 10*3/uL (0.90-5.00); Lymphocytes % (A) 27.5 %; MCHC 33.6 g/dL (32.0-37.0); MCV 95.2 fL (80.0-97.0); Monocytes # (A) 0.44 10*3/uL (0.20-1.00); Monocytes % (A) 8.5 %; Neutrophils % (A) 58.1 %; Platelet Count 163 10*3/uL (140-440); RBC 3.97 10*6/uL (4.40-5.60); RDW 14.6 % (11.5-14.5); WBC 5.16 10*3/uL (4.50-10.00)
[2024-09-16 03:47] LABS: ALT 37 U/L (4-49); AST 64 U/L (17-59); African American GFR (CKD) >90 (>60 ml/min/1.73 sqM); Albumin 2.8 g/dL (3.5-5.0); Alkaline Phosphatase 103 U/L (38-126); Anion Gap 4 mmol/L; Blood Urea Nitrogen 7 mg/dL (9-20); Calcium 8.7 mg/dL (8.4-10.2); Carbon Dioxide 29 mmol/L (22-30); Chloride 100 mmol/L (98-107); Glucose 93 mg/dL (74-99); Non-African American GFR(CKD) >90 (>60 ml/min/1.73 sqM); Sodium 133 mmol/L (137-145); Total Bilirubin 1.1 mg/dL (0.2-1.3); Total Protein 5.5 g/dL (6.3-8.2)
[2024-09-16 04:04] LABS: T4, Free (Free Thyroxine) 1.05 ng/dL (0.78-2.19)
[2024-09-16] MEDS: ASPIRIN 325 MG TAB PO SCH (08:38)
[2024-09-16] MEDS: MULTIVITAMINS, THERA 1 EACH TAB PO SCH (08:38)
[2024-09-16] MEDS: NICOTINE 21MG/24HR PATCH TRANSDERM SCH (08:51)
[2024-09-16 08:58] LABS: Chol/HDL Ratio 1.51 Ratio; LDL Cholesterol,Calculated 42.4 mg/dL (0.0-131.0); VLDL Calculation 9.56 mg/dL (5.00-40.00)
[2024-09-16] MEDS: METOPROLOL TARTRATE 25 MG TAB PO SCH (12:25)
[2024-09-16] MEDS: LOSARTAN-HCTZ 50-12.5 MG 1 EACH TAB PO SCH (12:25)
--- NOTE | 2024-09-16 14:12 | P.CN ---
Psychiatric Consult - . Consult date: 09/16/24 Consult:: 09/16/24 13:12 IDENTIFYING DATA: This patient is a 59-year-old male, he is single, he lives alone apartment, he has 2 daughters, unemployed REASON FOR REFERRAL: Psychiatry was consulted for "suicidal ideations" HISTORY OF PRESENT ILLNESS: The patient presented to the hospital on 09/15, and stated that he had gone to donate plasma however was unable to do so due to his elevated heart rate, came into the hospital. Patient apparently admitted that he was a heavy drinker, was also endorsing suicidal ideations no specific plan or mental health history reported. Patient's blood alcohol was negative, urine drug screen is negative. He was found to have low sodium and low magnesium. Also found to have atrial fibrillation, admitted medically. [employer] Dispatcher saw patient today at bedside. Patient appeared to be mildly disheveled today. Claims that he was attending to going plasma warm was feeling dizzy at the center had leg swelling and also was tachycardic. Claims that he was found to have atrial fibrillation when he came into the hospital. States that he has been dealing with a lot of financial issues being unemployed, states that he is right now dealing with a addiction notice which has been causing him to more stress. Claims that he was initially feeling fairly depressed when he came into the hospital and that he does have a history of feeling mildly depressed. Also endorsing some anxiety. Claims that since being in the hospital receiving treatment he is doing a bit better claims that he is not having any suicidal thoughts, denies any plan however states that he has had fleeting thoughts in the past. Denies any homicidal ideations. Claims that his sleep has been on and off. States that his appetite is fair. Patient denies any auditory, visual hallucinations and denies any paranoia or delusions. Patients admits to using cigarettes daily, claims that he drinks alcohol about 3-4 times a week drinking different amounts. He was somewhat attempting to minimize the drinking however did state that he went to rehab twice in the past. Claims that he is not having any severe withdrawal symptoms at this time no shakes his last drink was about 3 days ago. Denies any history of delirium tremens. PAST PSYCHIATRIC HISTORY: Patient has a a history of alcohol abuse, depression anxiety. Patient denies being on any psychiatric medications. Patient denies any previous psychiatric hospitalizations. Patient denies any psychiatric outpatient follow-up. Patient denies any history of suicide attempts in the past. Past Medical History: COPD, CVA/TIA Additional Past Medical History / Comment(s): ro[place] pt states he was told he might've had an PA when he was around 28 years old History of Any Multi-Drug Resistant Organisms: None Reported Past Surgical History: No Surgical Hx Reported Past Anesthesia/Blood Transfusion Reactions: No Reported Reaction Past Psychological History: No Psychological Hx Reported Smoking Status: Current every day smoker Past Alcohol Use History: Occasional Past Drug Use History: Marijuana ALLERGIES: as per EMR. CHEMICAL DEPENDENCY HISTORY: as per HPI. FAMILY PSYCHIATRIC/SUBSTANCE USE HISTORY: Claims that several people in his family abuse alcohol SOCIAL HISTORY: Patient was born and raised in [place] and also [place]. Claims that he went up to the 10th grade in school. States that he was in the [employer] for about 6 years from -. 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 Claims that he has been unemployed since then and frequently goes to donate plasma for money. Claims that he did have 2 DUIs in the past and served brief intermediate time.. MENTAL STATUS EXAM: General Appearance: Patient appears to be stated age is alert, pleasant, and cooperative. Patient appears to have mildly disheveled, hygiene and grooming wearing hospital gown with fair eye contact. Behavior: Patient is calmly lying in bed without any agitated behavior. Attempts to cooperate Speech: Patient's speech is fluent and nonpressured. Mood/Affect: Patient reports their mood is "depressed a bit, a bit anxious", affect is congruent fairly constricted Suicidality/Homicidality: Patient denies having any suicidal or homicidal ideation intent or plan. Perceptions: Patient denies any visual hallucinations and denies any auditory hallucinations Though content/process: There is no evidence of any delusional thought content and thought process is linear and goal-directed. Future oriented. Memory and concentration: AOX3, grossly intact for the purposes of this session. Can spell "WORLD" backwards Judgment and insight: Fair IMPRESSIONS: Major depressive disorder, mild Anxiety disorder unspecified Alcohol abuse Nicotine dependence PLAN: -At this time patient DOES NOT meet criteria for inpatient psychiatric admission. -Would recommend the following medication changes/additions: Patient is agreeable to try Zoloft 50 mg daily for mood/anxiety, trazodone 50 mg p.o. nightly for insomnia/mood. Also patient is agreeable to try naltrexone 50 mg p.o. daily for alcohol cravings. -CIWA protocol with PRN Ativan for alcohol withdrawal. Continue to monitor vital signs. -[facility] to provide patient with outpatient mental health/psychiatry resources for appropriate follow up upon discharge -[employer] Dispatcher spoke with patient about substance abuse and the harmful effects on medical and mental health, patient verbally understood and agreed. -[facility] [employer] to provide patient substance use treatment resources including AA/NA meetings in the community. -[facility]worker [employer] to provide patient with access line number to call for inpatient substance rehab -Communicated plan to patient's nurse and SW -Psychiatry will sign off at this time -Please contact with any questions. 09/16/24 14:07
[2024-09-16] MEDS: SERTRALINE 50 MG TAB PO SCH (15:57)
[2024-09-16] MEDS: NALTREXONE HCL 50 MG TAB PO SCH (15:58)
[2024-09-16] MEDS: traZODone HCL 50 MG TAB PO SCH (20:10)
[2024-09-17 07:14] LABS: Basophils # (A) 0.06 10*3/uL (0.00-0.10); Basophils % (A) 1.2 %; Eosinophils # (A) 0.21 10*3/uL (0.04-0.35); Eosinophils % (A) 4.4 %; HCT 42.3 % (39.6-50.0); HGB 13.8 g/dL (13.0-17.0); Lymphocytes # (A) 0.91 10*3/uL (0.90-5.00); Lymphocytes % (A) 18.9 %; MCH 30.9 pg (27.0-32.0); MCHC 32.6 g/dL (32.0-37.0); MCV 94.8 fL (80.0-97.0); Monocytes # (A) 0.41 10*3/uL (0.20-1.00); Monocytes % (A) 8.5 %; Neutrophils # (A) 3.19 10*3/uL (1.80-7.70); Neutrophils % (A) 66.2 %; Platelet Count 173 10*3/uL (140-440); RBC 4.46 10*6/uL (4.40-5.60); WBC 4.82 10*3/uL (4.50-10.00)
[2024-09-17 07:29] LABS: African American GFR (CKD) >90 (>60 ml/min/1.73 sqM); Anion Gap 2 mmol/L; Blood Urea Nitrogen 6 mg/dL (9-20); Calcium 9.3 mg/dL (8.4-10.2); Carbon Dioxide 29 mmol/L (22-30); Chloride 102 mmol/L (98-107); Glucose 102 mg/dL (74-99); Non-African American GFR(CKD) >90 (>60 ml/min/1.73 sqM); Sodium 133 mmol/L (137-145)
--- NOTE | 2024-09-17 09:26 | P.CRDCN ---
History of Present Illness History of present illness: HISTORY OF PRESENT ILLNESS: This is a 59-year-old male with a past medical history significant for alcohol abuse, COPD and nicotine dependence. Patient does not follow with a security sales manager . We have been asked to see the patient in consultation for atrial fibrillation. Patient examined at the bedside. Patient went to donate plasma yesterday and was found to be tachycardic. He was sent to the emergency room for further evaluation. Patient was found to be in A-fib with RVR. Patient denies any known history of atrial fibrillation. Patient was started on IV heparin and IV Cardizem. He is maintaining sinus mechanism at the time of examination. He denies any chest pain or shortness of breath. Vital signs are stable. REVIEW OF SYSTEMS: At the time of my exam: CONSTITUTIONAL: Denies fever or chills. HEENT: Denies blurred vision, vision changes, or eye pain. Denies hemoptysis CARDIOVASCULAR: Denies chest pain. Denies orthopnea. Denies PND. Denies palpitations RESPIRATORY: Denies shortness of breath. GASTROINTESTINAL: Denies abdominal pain. Denies nausea or vomiting. HEMATOLOGIC: Denies bleeding disorders. GENITOURINARY: Denies any blood in urine. SKIN: Denies pruitis. Denies rash. PHYSICAL EXAM: VITAL SIGNS: Reviewed. GENERAL: Well-developed in no acute distress. HEENT: Head is normocephalic. Pupils are equal, round. Sclerae anicteric. Mucous membranes of the mouth are moist. Neck supple. No JVD or thyromegaly LUNGS: Respirations even and unlabored. Lungs essentially clear to auscultation bilaterally. HEART: Regular rate and rhythm. S1 and S2 heard. ABDOMEN: Soft. Nondistended. Nontender. EXTREMITIES: Normal range of motion. No clubbing or cyanosis. Peripheral pulses intact. No lower extremity edema NEUROLOGIC: Awake and alert. Oriented x 3. ASSESSMENT: New onset paroxysmal atrial fibrillation with RVR, currently maintaining sinus mechanism Hypertension History of COPD History of alcohol abuse Nicotine dependence PLAN: Obtain 2D echo to assess cardiac structure and function Discontinue IV heparin and IV Cardizem Begin losartanhydrochlorothiazide 50-12.5 mg daily Add metoprolol tartrate 25 mg twice daily No anticoagulation required as patient's [id number] score is 1 for hypertension Continue telemetry monitoring Further recommendations pending patient course Nurse practitioner note has been reviewed by physician. Signing provider agrees with the documented findings, assessment, and plan of care documented by UNDERGRADUATE ADVISOR as a scribe. Past Medical History Past Medical History: COPD, CVA/TIA Additional Past Medical History / Comment(s): divirticultis, pt states he was told he might've had an HI when he was around 28 years old History of Any Multi-Drug Resistant Organisms: None Reported Past Surgical History: No Surgical Hx Reported Additional Past Surgical History / Comment(s): surgery to left foot with pins Past Anesthesia/Blood Transfusion Reactions: No Reported Reaction Past Psychological History: No Psychological Hx Reported Smoking Status: Current every day smoker Past Alcohol Use History: Occasional Past Drug Use History: Marijuana Medications and Allergies Home Medications Medication Instructions Recorded Confirmed Type No Known Home Medications 12/15/21 09/15/24 History Allergies Allergy/AdvReac Type Severity Reaction Status Date / Time aspirin AdvReac Nausea & Verified 09/15/24 13:54 Vomiting Physical Exam Vitals: Vital Signs Temp Pulse Resp BP Pulse Ox 09/17/24 08:20 18 09/17/24 08:05 98.1 F 74 18 128/69 92 L 09/17/24 03:52 98.0 F 82 18 133/81 92 L 09/17/24 00:00 98.1 F 65 18 136/73 92 L 09/16/24 20:00 98.0 F 62 18 156/91 94 L 09/16/24 15:59 98.3 F 64 18 144/84 96 09/16/24 12:00 98 F 66 18 154/86 95 Intake and Output 09/16/24 09/17/24 09/17/24 22:59 06:59 14:59 Intake Total 128 10 246 Balance 128 10 246 Intake: IV 10 10 10 Invasive Line 1 10 10 10 Oral 118 [id number] Other: Voiding Method Toilet Toilet Toilet # Voids 2 1 Weight 73.6 kg Results 09/17/24 06:40 09/17/24 06:40 Coagulation 09/16/24 Range/Units 09:55 APTT 26.5 (22.0-30.0) sec CBC 09/17/24 Range/Units 06:40 WBC 4.82 (4.50-10.00) 10*3/uL RBC 4.46 (4.40-5.60) 10*6/uL Hgb 13.8 (13.0-17.0) g/dL Hct 42.3 (39.6-50.0) % Plt Count 173 (140-440) 10*3/uL Comprehensive Metabolic Panel 09/17/24 Range/Units 06:40 Sodium 133 L (137-145) mmol/L Potassium 4.0 (3.5-5.1) mmol/L Chloride 102 (98-107) mmol/L Carbon Dioxide 29 (22-30) mmol/L BUN 6 L (9-20) mg/dL Creatinine 0.36 L (0.66-1.25) mg/dL Glucose 102 H (74-99) mg/dL Calcium 9.3 (8.4-10.2) mg/dL Current Medications Generic Name Dose Route Start Last Admin Trade Name Freq PRN Reason Stop Dose Admin HCTZ/Losartan Potassium 1 each 09/16/24 09:30 09/17/24 08:12 Losartan-Hctz 50-12.5 Mg 1 Each Tab PO 1 each DAILY [facility] Administration Heparin Sodium (Porcine) 0 unit 09/15/24 19:52 09/16/24 04:13 Heparin Sodium 1,000 Un/Ml (10ml Vl) IV 1,975 unit PER PROTOCOL PRN Administration Low PTT Protocol Metoprolol Tartrate 25 mg 09/16/24 09:15 09/17/24 08:11 Metoprolol Tartrate 25 Mg Tab PO 25 mg BID DAR Administration Multivitamins 1 each 09/16/24 09:00 09/17/24 08:11 Multivitamins, Thera 1 Each Tab PO 1 each DAILY DAR Administration Naltrexone HCl 50 mg 09/16/24 14:15 09/17/24 08:12 Naltrexone Hcl 50 Mg Tab PO 50 mg DAILY DAR Administration Nicotine 1 patch 09/16/24 09:00 09/17/24 08:12 Nicotine 21mg/24hr Patch TRANSDERM 1 patch DAILY DAR Administration Nitroglycerin 0.4 mg 09/15/24 13:56 Nitroglycerin Sl Tabs 0.4 Mg Tab SUBLINGUAL Q5M PRN Chest Pain Sertraline HCl 50 mg 09/16/24 14:15 09/17/24 08:12 Sertraline 50 Mg Tab PO 50 mg DAILY DAR Administration Thiamine HCl 100 mg 09/15/24 23:00 09/17/24 08:11 Thiamine 100 Mg Tab PO 100 mg DAILY DAR Administration Trazodone HCl 50 mg 09/16/24 21:00 09/16/24 20:10 Trazodone Hcl 50 Mg Tab PO 50 mg HS DAR Administration Intake and Output 09/16/24 09/17/24 09/17/24 22:59 06:59 14:59 Intake Total 128 10 246 Balance 128 10 246 Intake: IV 10 10 10 Invasive Line 1 10 10 10 Oral 118 236 Other: Voiding Method Toilet Toilet Toilet # Voids 2 1 Weight 73.6 kg 09/17/24 06:40 09/17/24 06:40
[2024-09-17 11:25] LABS: Glucose,Whole Blood 103 mg/dL (70-110)
--- NOTE | 2024-09-17 13:15 | P.PN ---
Subjective HISTORY OF PRESENT ILLNESS: This is a 59-year-old male with a past medical history significant for alcohol abuse, COPD and nicotine dependence. Patient does not follow with a simplex operator. We have been asked to see the patient in consultation for atrial fibrillation. Patient examined at the bedside. Patient went to donate plasma yesterday and was found to be tachycardic. He was sent to the emergency room for further evaluation. Patient was found to be in A-fib with RVR. Patient denies any known history of atrial fibrillation. Patient was started on IV heparin and IV Cardizem. He is maintaining sinus mechanism at the time of examination. He denies any chest pain or shortness of breath. Vital signs are stable. 09/18/2023 Patient examined this morning at bedside. Patient reports this morning he had an episode where he felt dizzy and lightheaded. He reports that he felt nauseated. He states that he had 3 beats where he felt his heart pounding really hard. Patient currently denies chest pain or pressure. He denies shortness of breath. Vital signs are stable. Telemetry reveals sinus mechanism. 2D echo is pending. PHYSICAL EXAM: VITAL SIGNS: Reviewed. GENERAL: Well-developed in no acute distress. HEENT: Head is normocephalic. Pupils are equal, round. Sclerae anicteric. Mucous membranes of the mouth are moist. Neck supple. No JVD or thyromegaly LUNGS: Respirations even and unlabored. Lungs essentially clear to auscultation bilaterally. HEART: Regular rate and rhythm. S1 and S2 heard. ABDOMEN: Soft. Nondistended. Nontender. EXTREMITIES: Normal range of motion. No clubbing or cyanosis. Peripheral pulses intact. No lower extremity edema NEUROLOGIC: Awake and alert. Oriented x 3. ASSESSMENT: New onset paroxysmal atrial fibrillation with RVR, currently maintaining sinus mechanism Hypertension History of COPD History of alcohol abuse Nicotine dependence PLAN: 2D echo ordered. Await results Continue losartanhydrochlorothiazide and metoprolol titrate No anticoagulation required as patient's [id number] score is 1 for hypertension Continue telemetry monitoring Patient is stable for discharge today from a cardiac standpoint pending echo results Nurse practitioner note has been reviewed by physician. Signing provider agrees with the documented findings, assessment, and plan of care documented by TANDEM MILL OPERATOR as a scribe. Objective - Vital Signs Vital signs: Vital Signs Temp 98.1 F 05/14/25 08:05 Pulse 74 09/17/24 08:05 Resp 18 09/17/24 08:20 BP 128/69 09/17/24 08:05 Pulse Ox 92 L 09/17/24 08:05 FiO2 Intake & Output 09/16/24 09/17/24 09/17/24 18:59 06:59 18:59 Intake Total 515.240 20 246 Balance 515.240 20 246 Weight 73.6 kg Intake: IV 20 10 Invasive Line 1 20 10 Intake, IV Titration 161.240 Amount Diltiazem 125 mg In 101.417 Dextrose 5% in Water 100 ml @ 5 MG/HR 5 mls/hr IV .Q24H [facility] Rx#:[id number] Heparin Sod,Pork in 0.45% 59.823 NaCl 25,000 unit In 0.45 % NaCl 1 250ml.bag @ 12 UNITS/KG/HR 9.525 mls/hr IV .Q24H [facility] Rx#: [id number] Oral 354 236 Other: Voiding Method Toilet Toilet # Voids 2 1 # Bowel Movements 1 - Labs CBC & Chem 7: 09/17/24 06:40 09/17/24 06:40 Labs: Abnormal Lab Results - Last 24 Hours (Table) 09/17/24 09/17/24 Range/Units 06:40 06:40 MPV 9.0 L (9.5-12.2) fL Sodium 133 L (137-145) mmol/L BUN 6 L (9-20) mg/dL Creatinine 0.36 L (0.66-1.25) mg/dL Glucose 102 H (74-99) mg/dL
[2024-09-18 00:31] VITALS: RESP 17
[2024-09-18 08:17] LABS: African American GFR (CKD) >90 (>60 ml/min/1.73 sqM); Anion Gap 4 mmol/L; Blood Urea Nitrogen 8 mg/dL (9-20); Calcium 9.1 mg/dL (8.4-10.2); Carbon Dioxide 30 mmol/L (22-30); Chloride 100 mmol/L (98-107); Glucose 96 mg/dL (74-99); Non-African American GFR(CKD) >90 (>60 ml/min/1.73 sqM); Potassium 3.9 mmol/L (3.5-5.1); Sodium 134 mmol/L (137-145)
[2024-09-18 08:33] VITALS: BP 105/69; TEMP 98
--- NOTE | 2024-09-18 11:21 | P.PN ---
Subjective HISTORY OF PRESENT ILLNESS: This is a 59-year-old male with a past medical history significant for alcohol abuse, COPD and nicotine dependence. Patient does not follow with a tank charger. We have been asked to see the patient in consultation for atrial fibrillation. Patient examined at the bedside. Patient went to donate plasma yesterday and was found to be tachycardic. He was sent to the emergency room for further evaluation. Patient was found to be in A-fib with RVR. Patient denies any known history of atrial fibrillation. Patient was started on IV heparin and IV Cardizem. He is maintaining sinus mechanism at the time of examination. He denies any chest pain or shortness of breath. Vital signs are stable. 09/17/2024 Patient examined this morning at bedside. Patient reports this morning he had an episode where he felt dizzy and lightheaded. He reports that he felt nauseated. He states that he had 3 beats where he felt his heart pounding really hard. Patient currently denies chest pain or pressure. He denies shortness of breath. Vital signs are stable. Telemetry reveals sinus mechanism. 2D echo is pending. 09/17/2024 Patient examined this morning at bedside. Patient currently denies chest pain or pressure. He denies shortness of breath. Vital signs are stable. Echocardiogram remains pending. PHYSICAL EXAM: VITAL SIGNS: Reviewed. GENERAL: Well-developed in no acute distress. HEENT: Head is normocephalic. Pupils are equal, round. Sclerae anicteric. Mucous membranes of the mouth are moist. Neck supple. No JVD or thyromegaly LUNGS: Respirations even and unlabored. Lungs essentially clear to auscultation bilaterally. HEART: Regular rate and rhythm. S1 and S2 heard. ABDOMEN: Soft. Nondistended. Nontender. EXTREMITIES: Normal range of motion. No clubbing or cyanosis. Peripheral pulses intact. No lower extremity edema NEUROLOGIC: Awake and alert. Oriented x 3. ASSESSMENT: New onset paroxysmal atrial fibrillation with RVR, currently maintaining sinus mechanism Hypertension History of COPD History of alcohol abuse Nicotine dependence PLAN: 2D echo ordered. Await results Continue losartanhydrochlorothiazide and metoprolol titrate No anticoagulation required as patient's [id number] score is 1 for hypertension Continue telemetry monitoring Patient is stable for discharge today from a cardiac standpoint pending echo results Nurse practitioner note has been reviewed by physician. Signing provider agrees with the documented findings, assessment, and plan of care documented by DIRECTOR OF AGRICULTURE as a scribe. Objective - Vital Signs Vital signs: Vital Signs Temp 98.0 F 09/18/24 08:18 Pulse 86 09/18/24 08:19 Resp 17 09/18/24 08:18 BP 105/69 09/18/24 08:18 Pulse Ox 97 09/18/24 08:18 FiO2 Intake & Output 09/17/24 09/18/24 09/18/24 18:59 06:59 18:59 Intake Total 496 20 128 Balance 496 20 128 Weight 71.8 kg Intake: IV 20 20 10 Invasive Line 1 20 20 10 Oral 476 118 Other: Voiding Method Toilet Toilet Toilet # Voids 1 1 - Labs CBC & Chem 7: 09/17/24 06:40 09/18/24 07:04 Labs: Abnormal Lab Results - Last 24 Hours (Table) 09/18/24 Range/Units 07:04 Sodium 134 L (137-145) mmol/L BUN 8 L (9-20) mg/dL Creatinine 0.43 L (0.66-1.25) mg/dL
--- NOTE | 2024-09-18 11:35 | CA ---
Transthoracic Echo Report Name: Jose Labyo Age: 59 Gender: M : 1965 Exam Date: 09/16/2024 10:16 Exam Location: [facility] Ht (in): 72 Wt (lb): 171 Ordering Physician: Attending/Referring Phys: [id number], [employer] Professor Gabby Hoover, BRANDY Procedure CPT: Indications: Cardiac Hx: COPD, CVA/TIA, [place] Technical Quality: Poor Contrast 1: Total Dose (mL): Contrast 2: Total Dose (mL): MEASUREMENTS (Male / Female) Normal Values 2D ECHO LV Diastolic Diameter PLAX 5.5 cm 4.2 - 5.9 / 3.9 - 5.3 cm LV Systolic Diameter PLAX 3.9 cm IVS Diastolic Thickness 0.8 cm 0.6 - 1.0 / 0.6 - 0.9 cm LVPW Diastolic Thickness 0.8 cm 0.6 - 1.0 / 0.6 - 0.9 cm LV Relative Wall Thickness 0.3 RV Internal Dim ED PLAX 3.0 cm LVOT Diameter 2.2 cm LA Systolic Diameter LX 3.6 cm 3.0 - 4.0 / 2.7 - 3.8 cm LV Diastolic Volume MOD BP 138.5 cm??? 67 - 155 / 56 - 104 cm??? LV Systolic Volume MOD BP 54.7 cm??? 22 - 58 / 19 - 49 cm??? LV Ejection Fraction MOD BP 60.5 % >= 55 % LV Diastolic Volume MOD 4C 117.0 cm??? LV Systolic Volume MOD 4C 48.1 cm??? LV Ejection Fraction MOD 4C 58.9 % LV Diastolic Length 4C 9.1 cm LV Systolic Length 4C 7.2 cm LV Diastolic Volume MOD 2C 157.3 cm??? LV Systolic Volume MOD 2C 62.1 cm??? LV Ejection Fraction MOD 2C 60.5 % LV Diastolic Length 2C 9.5 cm LV Systolic Length 2C 7.2 cm DOPPLER MV Area PHT 4.2 cm??? Mitral E Point Velocity 89.9 cm/s Mitral A Point Velocity 75.5 cm/s Mitral E to A Ratio 1.2 MV Deceleration Time 181.3 ms TR Peak Velocity 104.0 cm/s TR Peak Gradient 4.3 mmHg Right Atrial Pressure 5.0 mmHg Pulmonary Artery Systolic Pressu 9.3 mmHg Right Ventricular Systolic Press 9.3 mmHg FINDINGS Left Ventricle Left ventricular ejection fraction is estimated at 60%. Normal left ventricular systolic function with no obvious regional wall motion abnormalities. Left ventricular wall thickness normal. Mild left ventricular dilatation. Right Ventricle Normal right ventricular size and function. Right ventricular systolic pressure within normal limits. Right Atrium Normal right atrial size. Left Atrium Normal left atrial size. Mitral Valve Mitral annular calcification. No mitral stenosis. No mitral regurgitation. Aortic Valve Trileaflet aortic valve. Diffuse thickening (sclerosis) of the aortic valve cusps without reduced excursion. No aortic stenosis. No aortic regurgitation. Tricuspid Valve Structurally normal tricuspid valve. No tricuspid prolapse. No tricuspid stenosis. Trace tricuspid regurgitation. Pulmonic Valve Pulmonic valve not well visualized. No pulmonic stenosis. No pulmonic regurgitation. Pericardium No pericardial effusion. Aorta Aortic annulus normal. CONCLUSIONS Normal LV size and systolic function. Mild mitral and tricuspid regurgitation. No pulmonary hypertension no pericardial effusion. There is some mild mitral annular calcification. Previewed by: Dr. Christie Bauman MD (Electronically Signed) Final Date: 17 Sep 2024 08:13
--- NOTE | 2024-09-18 11:48 | P.PN ---
Subjective Progress Note Date: 09/16/24 Patient is an 59-year-old male with a past medical history of COPD, CVA/TIA, alcohol use disorder, currently everyday smoker and occasional marijuana use was sent to ER due to rapid and irregular heart rate. Patient states that he went to donate plasma today and was told that his heart rate was fast and irregular. He was sent to ER for further evaluation. He was also complaining of shortness of breath and midsternal heaviness/pain. Denied any radiation of the pain. He felt lightheaded. Denied any recent illnesses. No fever no chills. No cough or sputum production. Patient does have a history of alcohol abuse and his last drink was 2 days ago. Patient also states that he has been having suicidal ideation but did not have actual plan. Denies any suicidal homicidal ideation. Chest x-ray showed possible underlying COPD. Correlate clinically. Superimposed interstitial and peribronchial densities could reflect early pulmonary vascular congestion versus bronchitis or asthma. EKG showed atrial fibrillation with rapid ventricular response with aberrant conduction or ventricular premature complexes. Laboratory data showed WBC 5.8 hemoglobin 14.1 platelets 184 sodium 132 potassium 3.5 chloride 98 bicarbonate 29 BUN 10 and creatinine 0.36 and blood sugar 125 magnesium 1.3 AST 67 ALT 40 alk phos 107 troponin x 3 negative proBNP 2550 and TSH 4.75 UDS negative. Serum alcohol level less than 10 09/16/2024 Patient is lying in the bed. Awake alert and orient x 3. Heart rate is controlled. Currently in sinus rhythm. No complaints of chest pain or shortness of. No nausea vomiting abdominal diarrhea. Patient was started on metoprolol 25 mg twice daily. [id number] score 1. Not on anticoagulation. Cardiology is on board. Current medications reviewed. Objective - Vital Signs Vital signs: Vital Signs Temp 98 F 09/16/24 12:00 Pulse 66 09/16/24 12:00 Resp 18 09/16/24 12:00 BP 154/86 09/16/24 12:00 Pulse Ox 95 09/16/24 12:00 FiO2 Intake & Output 09/15/24 09/16/24 09/16/24 18:59 06:59 18:59 Intake Total 173.598 397.240 Balance 173.598 397.240 Weight 79.379 kg 77.8 kg Intake: IV 10 Invasive Line 1 10 Intake, IV Titration 163.598 161.240 Amount Diltiazem 125 mg In 101.417 Dextrose 5% in Water 100 ml @ 5 MG/HR 5 mls/hr IV .Q24H [facility] Rx#:[id number] Heparin Sod,Pork in 0.45% 163.598 59.823 NaCl 25,000 unit In 0.45 % NaCl 1 250ml.bag @ 12 UNITS/KG/HR 9.525 mls/hr IV .Q24H [facility] Rx#: [id number] Oral 236 Other: Voiding Method Toilet # Voids 2 1 # Bowel Movements 1 - Exam PHYSICAL EXAMINATION: Patient is lying in the bed comfortably, no acute distress, awake alert and oriented.. HEENT: Normocephalic. Neck is supple. Pupils reactive. Nostrils clear. Oral cavity is moist. Neck reveals no JVD, carotid bruits, or thyromegaly. CHEST EXAMINATION: Trachea is central. Symmetrical expansion. Lung mack clear to auscultation and percussion. CARDIAC: Normal S1, S2 with no gallops. No murmurs ABDOMEN: Soft. Bowel sounds normal. No organomegaly. No abdominal bruits. Extremities: reveal no edema. No clubbing or cyanosis Neurologically awake, alert, oriented x3 with well-coordinated movements. No focal deficits noted Skin: No rash or skin lesions. Psychiatric: Coperative. Nonsuicidal Musculoskeletal: No joint swelling or deformity. Normal range of motion. - Labs CBC & Chem 7: 09/17/24 06:40 09/18/24 07:04 Labs: Abnormal Lab Results - Last 24 Hours (Table) 09/16/24 09/16/24 09/16/24 Range/Units 02:26 02:26 02:27 RBC 3.97 L (4.40-5.60) 10*6/uL Hgb 12.7 L (13.0-17.0) g/dL Hct 37.8 L (39.6-50.0) % MPV 9.0 L (9.5-12.2) fL APTT 32.2 H (22.0-30.0) sec Sodium 133 L (137-145) mmol/L BUN 7 L (9-20) mg/dL Creatinine 0.38 L (0.66-1.25) mg/dL AST 64 H (17-59) U/L Total Protein 5.5 L (6.3-8.2) g/dL Albumin 2.8 L (3.5-5.0) g/dL HDL Cholesterol 102.00 H (40.00-60.00) mg/dL Assessment and Plan Assessment: New onset atrial fibrillation with rapid ventricular response. Currently back to sinus rhythm. Severe alcohol abuse. Last drink 48 hours ago Suicidal ideation on admission Major depressive disorder Hypokalemia and hypomagnesemia Currently everyday smoker Occasional marijuana use GI prophylaxis. Plan: Patient will be continued on telemonitoring. Cardizem and heparin drip has been discontinued. Continue with metoprolol 25 mg twice daily and no anticoagulation since [id number] score 1 Patient was started on home blood pressure medications. Patient was seen by psychiatry and request Zoloft and trazodone at bedtime and naltrexone which patient is agreeable to take. Monitor for alcohol withdrawal symptoms. Replace electrolytes. Cardiology is on board. . Smoking cessation and alcohol abstinence has been counseled extensively.
[2024-09-18 12:07] VITALS: PULSE 75
== END 2024-09-18 13:45 | disposition home or self-care (01) | DRG 309 ==
LOC: EC 10:53 → 3SCARD 13:56
PROVIDERS: ADMIT Internal Medicine; ATTEND Internal Medicine
DX: I48.0 Paroxysmal atrial fibrillation (principal); R45.851 Suicidal ideations; J44.9 Chronic obstructive pulmonary disease, unspecified; F10.10 Alcohol abuse, uncomplicated; F32.9 Major depressive disorder, single episode, unspecified; I10 Essential (primary) hypertension; F41.9 Anxiety disorder, unspecified; R00.0 Tachycardia, unspecified; R60.9 Edema, unspecified; E83.42 Hypomagnesemia; E87.6 Hypokalemia; F17.210 Nicotine dependence, cigarettes, uncomplicated; Z88.6 Allergy status to analgesic agent; Z87.19 Personal history of other diseases of the digestive system; Z71.41 Alcohol abuse counseling and surveillance of alcoholic; Z71.6 Tobacco abuse counseling
CPT/HCPCS: 36415; 71046; 80048; 80053; 80061; 80306; 80320; 82075; 83735; 83880; 84439; 84443; 84484; 85025; 85610; 85730; 93005; 93306; 94760; 96365; 96366; 96367; 96368; 99291